=== PATIENT | female | born 1935 | race Two or more races ===

== ENCOUNTER 2017-03-16 22:09 | Inpatient (IN) | payer MEDICAID, MEDICARE ==
[2017-03-16] MEDS ORDERED: NS 0.9% 1000 ML* 1,000 ML IV ONE (22:21)
[2017-03-16] MEDS ORDERED: Acetaminophen TAB* 325 MG PO ONE (22:21)
[2017-03-16 22:47] LABS: Hematocrit 38 % (35-47); Hemoglobin 12.1 g/dl (12.0-16.0); Mean Corpuscular HGB Conc 32 g/dl (31-36); Mean Corpuscular Hemoglobin 28 pg (27-31); Mean Corpuscular Volume 86 fL (80-97); Mean Platelet Volume 9 um3 (7.4-10.4); Red Blood Count 4.39 10^6/ul (4.0-5.4); Red Cell Distribution Width 17 % (10.5-15); White Blood Count 16.2 10^3/ul (3.5-10.8)
[2017-03-16 23:02] LABS: Albumin 3.7 g/dL (3.2-5.2); BUN/Creatinine Ratio 26.2 (8-20); Calcium 8.9 mg/dL (8.6-10.3); EGFR African American 121.7 (>60); EGFR Non-African American 94.6 (>60); Globulin 2.5 g/dL (2-4); Potassium 3.1 mmol/L (3.5-5.0); Total Bilirubin 0.3 mg/dL (0.2-1.0); Total Protein 6.2 g/dL (6.4-8.9)
[2017-03-16 23:04] LABS: Troponin I 0.02 ng/mL (<0.04)
--- NOTE | 2017-03-16 23:04 | RAD ---
INDICATION: Headache and inability to get up off of the floor independently COMPARISON: Similar CT of the brain dated June 18, 2014 TECHNIQUE: Contiguous axial sections of the brain were obtained from the skull base to the vertex without contrast. FINDINGS: The ventricles, cisterns and sulci exhibit mild symmetrical involutional changes similar to the previous CT of the brain. At the right temporal lobe (image 15 of 32) there is a 2.2 cm focus of hyperattenuating parenchyma similar in appearance to the previous CT of the brain. There is very mild periventricular and subcortical white matter hypoattenuation most consistent with chronic microvascular disease. Otherwise the del castillo-white matter differentiation is adequately maintained and there is no sulcal effacement. No significant focal abnormality or mass effect is present. There is no evidence for intracranial hemorrhage. No significant focal osseous abnormality is present. The visualized portion of the paranasal sinuses and mastoid air cells appear clear. 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 There is no CT evidence of acute intracranial abnormality.
[2017-03-16] MEDS ORDERED: cefTRIAXone VIAL(*) 1,000 MG in NS 0.9% 50 ML* 50 ML IVPB ONE (23:06)
--- NOTE | 2017-03-16 23:06 | RAD ---
INDICATION: Fever COMPARISON: Similar chest x-ray dated March 30, 2014 TECHNIQUE: Single AP view of the chest was obtained. FINDINGS: There is mild cardiomegaly relative to the previous chest x-ray. The heart and mediastinum otherwise exhibit normal contour and morphology. There is hazy density overlying the central lungs bilaterally and exhibit securing the left lung base and left hemidiaphragm. The pulmonary vasculature appears engorged and indistinct. Visualized bones are normal for the patient's age. IMPRESSION: IN THE CORRECT CLINICAL SETTING FINDINGS THIS CHEST X-RAY COULD BE COMPATIBLE WITH CARDIOGENIC PULMONARY EDEMA.
[2017-03-16] MEDS ORDERED: Potassium Chlor TAB* 20 MEQ TAB.ER PO ONE (23:12)
--- NOTE | 2017-03-16 23:14 | ED ---
Wade Rodriguez Aidan, scribed for Dorothy Randolph MD on 03/16/17 at 2309 . Complex/Multi-Sys Presentation - HPI Summary HPI Summary: 81 y/o female presents to the ED via EMS with a complaint of an acute, moderate episode of weakness and suspected hyperthermia that caused the patient to fall earlier today. After she fell, she remained on the ground for several hours. There was no associated head trauma or LOC. Associated symptoms include a fever of 103 earlier today, dizziness during the onset of her fall, and an inability to urinate, despite needing to go. She mentions feeling unwell for several days now. Pt denies any dysuria, abdominal pain, or use of blood thinners. She was given a liter of fluids en route. She weighs roughly 64Kg. - History Of Current Complaint Chief Complaint: EDGeneral Time Seen by Provider: 03/16/17 22:11 Hx Obtained From: Patient Onset/Duration: Sudden Onset, Lasting Hours, Still Present - Pt still feels weak , however, she no longer has any other associated symptoms Timing: Intermittent, Lasting:, Hours - Pt remained on the floor after the fall for several hours Severity Currently: Moderate Severity Initially: Moderate - currently, moderate weakness Location: Negative - no pain mentioned Aggravating Factor(s): unknown, however, her room was very hot when EMS arrived which may have caused her fall Alleviating Factor(s): unknown Associated Signs And Symptoms: Positive: Dizziness - during onset of fall, Weakness - constant, still present, Fever - of 103 according to EMS, Other - inability to urinate - Allergies/Home Medications Allergies/Adverse Reactions: Allergies Allergy/AdvReac Type Severity Reaction Status Date / Time Beta Adrenergic Blockers AdvReac Coughing Verified 08/05/16 10:57 ENVIRONMENTAL/SEASONAL Allergy Unknown Uncoded 12/29/13 10:09 HAYFEVER Reaction Details PMH/Surg Hx/FS Hx/Imm Hx Cardiovascular History: Reports: Hx Hypertension - control with meds Denies: Hx Pacemaker/ICD GI History: Reports: Hx Gastroesophageal Reflux Disease - CONTROL WITH MEDICATION History: Reports: Hx Kidney Stones - long time ago - passed Musculoskeletal History: Reports: Hx Arthritis - RHEUMATOID ARTHRITIS, Other Musculoskeletal History - right wrist carpal tunnel syndrome Denies: Hx Osteoporosis Sensory History: Reports: Hx Contacts or Glasses - glasses Denies: Hx Hearing Aid Opthamlomology History: Reports: Hx Contacts or Glasses - glasses Psychiatric History: Reports: Hx Anxiety - HX OF, Hx Depression - HX OF Denies: Hx Panic Disorder - Cancer History Cancer Type, 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 Hx Chemotherapy: No Hx Radiation Therapy: No - Surgical History Surgery Procedure, Year, and Place: BILATERAL CATARACT EXTRACTION WITH IOL IMPLANT,APPENDECTOMY,DEVIATED SEPTUM REPAIR,BX BOTH TEMPLES Hx Anesthesia Reactions: No Infectious Disease History: No Infectious Disease History: Denies: Traveled Outside the [place] in Last 30 Days - Family History Known Family History: Negative: Hypertension, Diabetes - Social History Occupation: Retired Lives: With Family Alcohol Use: None Substance Use Type: Reports: None Smoking Status (MU): Never Smoked Tobacco Review of Systems Positive: Fever - 103. Negative: Chills, Fatigue, Skin Diaphoresis Eyes: Negative ENT: Negative Cardiovascular: Negative Respiratory: Negative Gastrointestinal: Negative Positive: see HPI, other - inability to urinate. Negative: no symptoms reported , burning, dysuria, discharge, frequency, flank pain, hematuria, incontinence, pain, urgency Musculoskeletal: Negative Skin: Negative Neurological: Other - Pt fell as the result of her weakness and possible hyperthermia, no reported LOC, dizziness Positive: Weakness. Negative: Headache, Paresthesia, Numbness, Syncope, Slurred Speech Psychological: Normal All Other Systems Reviewed And Are Negative: Yes Physical Exam - Summary Physical Exam Summary: General: Well appearing, no pain distress; POSITIVE: Patient is very warm to touch Skin: Warm, Skin Color Reflects Adequate Perfusion, Dry Eyes: EOMI, ALEXANDRE ENT: Pharynx normal, TMs normal Neck: Supple, nontender Respiratory: CTA, breath sounds present, no rhonchi, no wheezes, no rales Cardiovascular: RRR, no murmur, no rub, no gallop Abdomen: Soft, nontender, Non-distended, no guarding, no rebound Bowel: Present Musculoskeletal: YUDITH, No edema Neuro: Sensory/motor intact, A&Ox3, CN intact 2-12 Psych: Affect/mood appropriate Triage Information Reviewed: Yes Vital Signs On Initial Exam: Initial Vitals Temp Pulse Resp BP Pulse Ox 99.3 F 110 20 133/53 92 03/16/17 22:22 03/16/17 22:22 03/16/17 22:22 03/16/17 22:22 03/16/17 22:22 Vital Signs Reviewed: Yes Diagnostics - Vital Signs Vital Signs Temp Pulse Resp BP Pulse Ox 03/16/17 22:22 99.3 F 110 20 133/53 92 - Laboratory Lab Results: Lab Results 03/16/17 03/16/17 Range/Units 22:40 22:40 WBC 16.2 H (3.5-10.8) 10^3/ul RBC 4.39 (4.0-5.4) 10^6/ul Hgb 12.1 (12.0-16.0) g/dl Hct 38 (35-47) % MCV 86 (80-97) fL MCH 28 (27-31) pg MCHC 32 (31-36) g/dl RDW 17 H (10.5-15) % Plt Count 166 (150-450) 10^3/ul MPV 9 (7.4-10.4) um3 Neut % (Auto) 86.6 H (38-83) % Lymph % (Auto) 8.2 L (25-47) % Dixie % (Auto) 4.2 (1-9) % Eos % (Auto) 0.5 (0-6) % Baso % (Auto) 0.5 (0-2) % Absolute Neuts (auto) 14.0 H (1.5-7.7) 10^3/ul Absolute Lymphs (auto) 1.3 (1.0-4.8) 10^3/ul Absolute Monos (auto) 0.7 (0-0.8) 10^3/ul Absolute Eos (auto) 0.1 (0-0.6) 10^3/ul Absolute Basos (auto) 0.1 (0-0.2) 10^3/ul Absolute Nucleated RBC 0.01 10^3/ul Nucleated RBC % 0 INR (Anticoag Therapy) 1.10 (0.89-1.11) APTT 31.4 (26.0-36.3) seconds Result Diagrams: 03/16/17 22:40 03/16/17 22:40 Lab Statement: Any lab studies that have been ordered have been reviewed, and results considered in the medical decision making process. Complex Multi-Symp Course/Dx Course Of Treatment: 81 yo female with a fall s/p not feeling well today she was on the floor for several hours. She is suspected to have a uti, her lactic is 3, and her wbc is 16, she received 1Liter ns in the ambulance was given the rest of her 30cc/kg wide open on arrival. She is being covered for sepsis with ceftriaxone and the case has been discussed with Dr. Morales for admission. CXR is read as possible chf but pt does not appear to be in failure. cpk is slightly elevated but no signs of rhabdomyolysis at this time - Diagnoses Provider Diagnoses: Sepsis - Physician Notifications Discussed Care Of Patient With: Nereida Morales Time Discussed With Above Provider: 23:15 Instructed by Provider To: Admit As Inpatient - Critical Care Time Critical Care Time: 30-74 min Discharge - Discharge Plan Condition: Guarded Disposition: ADMITTED TO [facility] The documentation as recorded by the Wade oleary Aidan accurately reflects the service I personally performed and the decisions made by me, Dorothy Randolph MD.
[2017-03-16 23:35] LABS: Magnesium 1.9 mg/dL (1.9-2.7)
[2017-03-17 00:10] LABS: Urine Bacteria 1+ (Absent); Urine Bilirubin Negative (Negative); Urine Glucose 2+(150 mg/dL) (Negative); Urine Nitrite Positive (Negative)
[2017-03-17] MEDS ORDERED: Al Hydrox/Mg Hydrox/Simet LIQ* 30 ML UDC PO PRN (00:39)
[2017-03-17] MEDS ORDERED: Docusate CAP* 100 MG PO PRN (00:39)
[2017-03-17] MEDS ORDERED: Senna TAB PO PRN (00:39)
[2017-03-17] MEDS ORDERED: Ondansetron INJ* 2 MG/ML VIAL IV PRN (00:39)
[2017-03-17] MEDS ORDERED: Acetaminophen TAB* 325 MG PO PRN (00:39)
[2017-03-17] MEDS ORDERED: oxyCODONE/Acetamin 5/325 MG* TAB PO PRN (00:42)
[2017-03-17] MEDS ORDERED: NS 0.9% 1000 ML* 1,000 ML IV SCH (00:45)
--- NOTE | 2017-03-17 02:58 | HP ---
CC: Ashley Reyes MD HISTORY AND PHYSICAL: DATE OF ADMISSION: 03/17/17 TIME OF EVALUATION: 010 PRIMARY CARE PHYSICIAN: Ashley Reyes MD CHIEF COMPLAINT: Fall, weakness. HISTORY OF PRESENT ILLNESS: This is a 81-year-old female with a past medical history of rheumatoid arthritis and hypertension who presents to the emergency room after falling and feeling unwell today. The patient lives at [facility] alone and she was feeling warm and sweating earlier today and having difficulty urinating. She fell on to the floor and called her daughter who came over, was unable to get her up and had to call the EMS at that time. The patient states that she has frontal headache, neck pain, which is chronic. She has fibromyalgia and she has been dizzy. She was having issues with urinating earlier, is no longer the case anymore. No dysuria. No abdominal pain. No nausea, vomiting, or diarrhea. She has been complaining of some chest heaviness and palpitations. Otherwise, review of systems is negative. In the emergency room, the patient had labs, imaging. She was given a liter of normal saline, ceftriaxone 1 g, and 40 mEq of potassium, was referred to the hospitalist service for further evaluation. PAST MEDICAL HISTORY: 1. Fibromyalgia. 2. Hypertension. 3. History of carpal tunnel release. 4. GERD. 5. Rheumatoid arthritis. 6. Anxiety and depression. MEDICATIONS: The daughter brought her medications, unfortunately they are all pill boxes, we will need to confirm what her medications are and reorder them accordingly in the morning. ALLERGIES: BETA ADRENERGIC BLOCKERS, ENVIRONMENTAL, SEASONAL ALLERGIES. FAMILY HISTORY: Her mother at age 94 from old age and her father at age 74 from cardiac causes. SOCIAL HISTORY: As mentioned, the patient lives alone in [facility]. She ambulates independently, mostly occasionally with a walker. Her daughter, Azul Barahona, is her healthcare proxy. No history of tobacco, alcohol, or illicit drug use. Code status was full code. REVIEW OF SYSTEMS: As mentioned in the HPI. PHYSICAL EXAMINATION GENERAL: In no acute distress. Resting comfortably with her daughter at the bedside. VITAL SIGNS: Temp 99.3, pulse rate 103, respiratory rate 24, oxygen saturation 96% on 2 L, blood pressure 133/53. HEENT: Head normocephalic. Pupils are equal, reactive, and anicteric. Oropharynx: Mucous membranes are moist. NECK: Supple. No lymphadenopathy. She does have pain with flexion; however, this was chronic. RESPIRATORY: Diminished breath sounds. No wheezes, rhonchi, or rales. CARDIAC: Tachycardic, harsh systolic murmur heard most prominent at the right sternal base radiating to the carotids. ABDOMEN: Soft, nontender, nondistended. No tenderness. EXTREMITIES: No clubbing, cyanosis, or edema. +1 DPs. NEUROLOGIC: Alert, awake, and oriented x3. No focal neurologic deficits. LABORATORY DATA: White count 16.2, hemoglobin 12.1, hematocrit 38, platelets 166, INR 1.10. Sodium 137, potassium 3.1, chloride 105, bicarb 24, BUN 16, creatinine 0.61, glucose 255, lactic acid 3. Total CK is 345. Troponin is 0.02. Urinalysis, clean catch, nitrites positive, leukocytes +3, whites +3, present squamous cells, +2 glucose. RADIOGRAPHIC DATA: Head CT: Chronic findings as described above includes stable encephalomalacia at the right temporal lobe, mild microvascular disease, and mild age-appropriate involutional changes. There is no CT evidence of acute intracranial abnormality. Chest x-ray shows in regards to clinical setting, findings of chest x-ray could be combined with cardiogenic pulmonary edema. EKG shows sinus tachycardia at a rate of 109. ASSESSMENT: This is a 81-year-old female with a past medical history of rheumatoid arthritis who presents to the emergency room having fallen and not feeling well. 1. Fall. Assessment: I suspect her fall was secondary to her sepsis most likely secondary to a urinary traction infection in the setting of urinary tract infection and fever with white count. She does have some neck tenderness; however, this appears to be old and we have another clear source for infection at this time. She had a urinary tract infection in the past and was sensitive to ceftriaxone. Plan: We will admit her with IV fluids and continue on ceftriaxone. Follow up with the urine cultures. 2. Chest heaviness. Assessment: The patient complaining of intermittent chest heaviness. Her EKG and troponin are remarkable initially. Plan: We will admit her to the telemetry, repeat her troponin. CHRONIC MEDICAL PROBLEMS: 1. Need to call pharmacy at [facility] to get her medication list as she is in fact immunosuppressed for her rheumatoid arthritis, may consider broader spectrum antibiotic use if not clinically improving. 2. FEN. I will place the patient on a regular diet with IV fluids. 3. DVT prophylaxis, the patient scores high risk, placed on heparin subcu t.i.d. 4. Code status, full code. PATIENT TIME: Greater than 55 minutes spent doing the history and physical, more than half the time spent in direct patient contact. [id number]/CPS #: [id number] JACQUELINE
[2017-03-17] MEDS: Heparin VIAL(*) 5000 UNITS/ML VIAL (FIVE THOUSAND) SUBCUT SCH ×3 (05:32→21:43)
[2017-03-17 06:40] LABS: Hematocrit 36 % (35-47); Mean Corpuscular HGB Conc 33 g/dl (31-36); Mean Corpuscular Hemoglobin 29 pg (27-31); Mean Corpuscular Volume 86 fL (80-97); Mean Platelet Volume 10 um3 (7.4-10.4); Red Blood Count 4.21 10^6/ul (4.0-5.4); Red Cell Distribution Width 17 % (10.5-15); White Blood Count 10.7 10^3/ul (3.5-10.8)
[2017-03-17 06:52] LABS: BUN/Creatinine Ratio 21.7 (8-20); Calcium 8.4 mg/dL (8.6-10.3); EGFR African American 168.5 (>60); Potassium 3.3 mmol/L (3.5-5.0)
[2017-03-17 06:54] LABS: Troponin I 0.03 ng/mL (<0.04)
[2017-03-17] MEDS ORDERED: Potassium Chlor TAB* 20 MEQ TAB.ER PO ONE (08:22)
[2017-03-17] MEDS: cefTRIAXone VIAL(*) 1,000 MG in NS 0.9% 50 ML* 50 ML IVPB SCH (08:56)
--- NOTE | 2017-03-17 09:14 | PN ---
Subjective Date of Service: 03/17/17 Interval History: Patient seen and examined at bedside with assistance of Argentine log handler via iPad (name: Micheline) She is in no acute distress, however, she is very tired and does nod yes when asked if tired. Patient does not provide much in way of complaint or conversation at this time but does follow commands with repeated prompting. Responds yes or no in both Urdu and Argentine - unable to have full conversation, as patient keeps falling asleep. Telemetry: SR with PVCs 80s Family History: Unchanged from Admission Social History: Unchanged from Admission Past Medical History: Unchanged from Admission Objective Active Medications: Acetaminophen (Tylenol Tab*) 650 mg PO Q4H PRN PRN Reason: FEVER/PAIN Al Hydrox/Mg Hydrox/Simethicone (Maalox Plus*) 30 ml PO Q6H PRN PRN Reason: INDIGESTION Docusate Sodium (Colace Cap*) 100 mg PO BID PRN PRN Reason: CONSTIPATION Heparin Sodium (Porcine) (Heparin Vial(*)) 5,000 units SUBCUT Q8HR [facility] Last Admin: 03/17/17 05:32 Dose: 5,000 units Ceftriaxone Sodium 1,000 mg/ (Sodium Chloride) 50 mls @ 200 mls/hr IVPB Q24H [facility] Last Admin: 03/17/17 08:56 Dose: 200 mls/hr Ondansetron HCl (Zofran Inj*) 4 mg IV Q4H PRN PRN Reason: NAUSEA/VOMITING Oxycodone/Acetaminophen (Percocet 5/325 Tab*) 1 tab PO Q4H PRN PRN Reason: PAIN Senna (Senokot Tab*) 1 tab PO BID PRN PRN Reason: CONSTIPATION Vital Signs 03/17/17 03/17/17 03/17/17 01:00 01:02 01:13 Temperature Pulse Rate 88 90 Respiratory 23 20 20 Rate Blood Pressure 108/48 (mmHg) O2 Sat by Pulse 93 93 Oximetry 03/17/17 03/17/17 03/17/17 02:27 04:18 07:48 Temperature 98.7 F 99.4 F 98.5 F Pulse Rate 87 90 93 Respiratory 20 16 16 Rate Blood Pressure 113/41 132/57 119/54 (mmHg) O2 Sat by Pulse 94 92 93 Oximetry Oxygen Devices in Use Now: None Appearance: Elderly female, lying in bed, NAD, very sleepy Eyes: PERRLA Ears/Nose/Mouth/Throat: Mucous Membranes Moist Neck: NL Appearance and Movements; NL JVP Respiratory: Symmetrical Chest Expansion and Respiratory Effort, Clear to Auscultation - diminished Cardiovascular: RRR - systolic murmur 2-3/6 Abdominal: NL Sounds; No Tenderness; No Distention Extremities: No Edema Neurological: - - difficult to determine orientation while pt is sleepy, JAMES, departmental shipping clerk equal bilaterally, follows commands Lines/Tubes/Other Access: Clean, Dry and Intact Peripheral IV Result Diagrams: 03/17/17 05:50 03/17/17 05:32 Additional Lab and Data: Lab Results 03/16/17 03/16/17 Range/Units 22:40 22:40 WBC 16.2 H (3.5-10.8) 10^3/ul RBC 4.39 (4.0-5.4) 10^6/ul Hgb 12.1 (12.0-16.0) g/dl Hct 38 (35-47) % MCV 86 (80-97) fL MCH 28 (27-31) pg MCHC 32 (31-36) g/dl RDW 17 H (10.5-15) % Plt Count 166 (150-450) 10^3/ul MPV 9 (7.4-10.4) um3 Neut % (Auto) 86.6 H (38-83) % Lymph % (Auto) 8.2 L (25-47) % Pope % (Auto) 4.2 (1-9) % Eos % (Auto) 0.5 (0-6) % Baso % (Auto) 0.5 (0-2) % Absolute Neuts (auto) 14.0 H (1.5-7.7) 10^3/ul Absolute Lymphs (auto) 1.3 (1.0-4.8) 10^3/ul Absolute Monos (auto) 0.7 (0-0.8) 10^3/ul Absolute Eos (auto) 0.1 (0-0.6) 10^3/ul Absolute Basos (auto) 0.1 (0-0.2) 10^3/ul Absolute Nucleated RBC 0.01 10^3/ul Nucleated RBC % 0 INR (Anticoag Therapy) 1.10 (0.89-1.11) APTT 31.4 (26.0-36.3) seconds Assess/Plan/Problems-Billing Assessment: Ms. Barahona is a 81 yo female with a PMH of fibromyalgia, HTN, GERD, RA, carpal tunnel sx, anxiety, and depression who presented to the ED on 03/16 with concern for fall and weakness; pt found to have UTI upon evaluation. - Patient Problems (1) Sepsis Comment: Suspect urinary source Patient meets SIRS criteria with elevated WBC, lactic acid, tachypnea, and tachycardia. Patient meets SOFA criteria with qSOFA score of 1 for tachypnea. Blood and urine cx pending. Continue IVF and ceftriaxone. (2) UTI (urinary tract infection) Comment: UA positive for nitrates, leukocyte esterase, bacteria Continue ceftriaxone Await urine cx (3) Fall Comment: Patient previously independent with ADLs and resides at [facility]. Suspect secondary to acute infection and sepsis. PT/OT eval (4) Chest heaviness Code(s): R07.89 - OTHER CHEST PAIN Comment: Denies at this time Trop negative, no ischemic changes to EKG Telemetry shows SR with PVCs Suspect secondary to sepsis and tachycardia Continue to monitor (5) HTN (hypertension) Code(s): I10 - ESSENTIAL (PRIMARY) HYPERTENSION Comment: Normotensive Continue amlodipine, losartan. Hold HCTZ. (6) GERD (gastroesophageal reflux disease) Code(s): K21.9 - GASTRO-ESOPHAGEAL REFLUX DISEASE WITHOUT ESOPHAGITIS Comment : Continue home omeprazole. (7) Rheumatoid arthritis Code(s): M06.9 - RHEUMATOID ARTHRITIS, UNSPECIFIED Comment: Resume methotrexate upon discharge. (8) Anxiety and depression Code(s): F41.9 - ANXIETY DISORDER, UNSPECIFIED; F32.9 - MAJOR DEPRESSIVE DISORDER, SINGLE EPISODE, UNSPECIFIED Comment: Continue amitryptiline. (9) DVT prophylaxis Comment: SQ heparin Status and Disposition: Inpatient admission. Anticipate dc in 2-3 days.
[2017-03-17] MEDS: Pregabalin CAP(*) 50 MG PO SCH (19:32)
[2017-03-17] MEDS: Dorzolamide/Timolol OPTH (NF) 10 ML BOT BOTH EYES SCH (19:35)
[2017-03-17] MEDS ORDERED: Amitriptyline TAB* 25 MG PO SCH (21:00)
[2017-03-18] MEDS: Heparin VIAL(*) 5000 UNITS/ML VIAL (FIVE THOUSAND) SUBCUT SCH ×2 (04:55→14:36)
[2017-03-18] MEDS ORDERED: Folic Acid TAB* 1 MG PO SCH (09:00)
[2017-03-18] MEDS ORDERED: Omeprazole CAP* 20 MG PO SCH (09:00)
[2017-03-18] MEDS ORDERED: Losartan TAB* 25 MG PO SCH (09:00)
[2017-03-18] MEDS ORDERED: CMC:Pravastatin (NF) 20 MG TAB PO SCH (09:00)
[2017-03-18] MEDS ORDERED: amLODIPine TAB* 5 MG PO SCH (09:00)
[2017-03-18] MEDS: cefTRIAXone VIAL(*) 1,000 MG in NS 0.9% 50 ML* 50 ML IVPB SCH (09:13)
[2017-03-18] MEDS: Dorzolamide/Timolol OPTH (NF) 10 ML BOT BOTH EYES SCH (09:16)
[2017-03-18] MEDS: Pregabalin CAP(*) 50 MG PO SCH ×2 (09:57→14:35)
--- NOTE | 2017-03-18 10:01 | PN ---
Subjective Date of Service: 03/18/17 Interval History: Patient seen and examined at bedside. She is more alert today and denies any acute concerns, including fever/chills, CP, SOB, abd pain, n/v, dizziness. She still feels fatigued but states that it helps her to rest frequently. She reports that she has help at home. Family History: Unchanged from Admission Social History: Unchanged from Admission Past Medical History: Unchanged from Admission Objective Active Medications: Acetaminophen (Tylenol Tab*) 650 mg PO Q4H PRN PRN Reason: FEVER/PAIN Last Admin: 03/17/17 19:33 Dose: 650 mg Al Hydrox/Mg Hydrox/Simethicone (Maalox Plus*) 30 ml PO Q6H PRN PRN Reason: INDIGESTION Amitriptyline HCl (Elavil Tab*) 25 mg PO BEDTIME [facility] Last Admin: 03/17/17 19:33 Dose: 25 mg Amlodipine Besylate (Norvasc Tab*) 5 mg PO DAILY [facility] Last Admin: 03/18/17 09:04 Dose: 5 mg Docusate Sodium (Colace Cap*) 100 mg PO BID PRN PRN Reason: CONSTIPATION Dorzolamide/Timolol (Cosopt (Nf)) 1 drop BOTH EYES BID [facility] PRN Reason: Protocol Last Admin: 03/18/17 09:16 Dose: Not Given Folic Acid (Folvite Tab*) 1 mg PO DAILY [facility] Last Admin: 03/18/17 09:05 Dose: 1 mg Heparin Sodium (Porcine) (Heparin Vial(*)) 5,000 units SUBCUT Q8HR [facility] Last Admin: 03/18/17 04:55 Dose: 5,000 units Ceftriaxone Sodium 1,000 mg/ (Sodium Chloride) 50 mls @ 200 mls/hr IVPB Q24H [facility] Last Admin: 03/18/17 09:13 Dose: 200 mls/hr Losartan Potassium (Cozaar Tab*) 100 mg PO DAILY [facility] Last Admin: 03/18/17 09:55 Dose: 100 mg Omeprazole (Prilosec Cap*) 40 mg PO DAILY [facility] Last Admin: 03/18/17 09:03 Dose: 40 mg Ondansetron HCl (Zofran Inj*) 4 mg IV Q4H PRN PRN Reason: NAUSEA/VOMITING Oxycodone/Acetaminophen (Percocet 5/325 Tab*) 1 tab PO Q4H PRN PRN Reason: PAIN Pravastatin Sodium (Pravachol (Nf)) 20 mg PO DAILY [facility] PRN Reason: Protocol Last Admin: 03/18/17 09:56 Dose: 20 mg Pregabalin (Lyrica Cap(*)) 150 mg PO TID [facility] Last Admin: 03/18/17 09:57 Dose: 150 mg Senna (Senokot Tab*) 1 tab PO BID PRN PRN Reason: CONSTIPATION Vital Signs 03/17/17 03/17/17 03/17/17 11:45 15:33 18:34 Temperature 98.6 F 98.3 F Pulse Rate 87 85 Respiratory 16 24 18 Rate Blood Pressure 121/53 108/49 (mmHg) O2 Sat by Pulse 97 92 98 Oximetry 03/17/17 03/17/17 03/17/17 19:32 19:35 19:53 Temperature 98.4 F 98.4 F Pulse Rate 91 83 Respiratory 14 18 22 Rate Blood Pressure 105/49 94/48 (mmHg) O2 Sat by Pulse 96 95 Oximetry 03/17/17 03/17/17 03/18/17 21:32 23:52 04:03 Temperature 99.0 F 97.8 F Pulse Rate 84 87 Respiratory 18 16 16 Rate Blood Pressure 122/57 115/66 (mmHg) O2 Sat by Pulse 95 93 Oximetry 03/18/17 03/18/17 07:54 09:57 Temperature 97.6 F Pulse Rate 83 Respiratory 22 18 Rate Blood Pressure 133/59 (mmHg) O2 Sat by Pulse 94 Oximetry Oxygen Devices in Use Now: None Appearance: Older female, OOB to chair, NAD Eyes: PERRLA Ears/Nose/Mouth/Throat: Mucous Membranes Moist Neck: NL Appearance and Movements; NL JVP Respiratory: Symmetrical Chest Expansion and Respiratory Effort, Clear to Auscultation Cardiovascular: NL Sounds; No Murmurs; No JVD, RRR Abdominal: NL Sounds; No Tenderness; No Distention Extremities: No Edema Neurological: Alert and Oriented x 3, NL Muscle Strength and Tone Lines/Tubes/Other Access: Clean, Dry and Intact Peripheral IV Nutrition: Taking PO's Result Diagrams: 03/17/17 05:50 03/17/17 05:32 Additional Lab and Data: Lab Results 03/16/17 03/16/17 Range/Units 22:40 22:40 WBC 16.2 H (3.5-10.8) 10^3/ul RBC 4.39 (4.0-5.4) 10^6/ul Hgb 12.1 (12.0-16.0) g/dl Hct 38 (35-47) % MCV 86 (80-97) fL MCH 28 (27-31) pg MCHC 32 (31-36) g/dl RDW 17 H (10.5-15) % Plt Count 166 (150-450) 10^3/ul MPV 9 (7.4-10.4) um3 Neut % (Auto) 86.6 H (38-83) % Lymph % (Auto) 8.2 L (25-47) % [place] % (Auto) 4.2 (1-9) % Eos % (Auto) 0.5 (0-6) % Baso % (Auto) 0.5 (0-2) % Absolute Neuts (auto) 14.0 H (1.5-7.7) 10^3/ul Absolute Lymphs (auto) 1.3 (1.0-4.8) 10^3/ul Absolute Monos (auto) 0.7 (0-0.8) 10^3/ul Absolute Eos (auto) 0.1 (0-0.6) 10^3/ul Absolute Basos (auto) 0.1 (0-0.2) 10^3/ul Absolute Nucleated RBC 0.01 10^3/ul Nucleated RBC % 0 INR (Anticoag Therapy) 1.10 (0.89-1.11) APTT 31.4 (26.0-36.3) seconds Assess/Plan/Problems-Billing Assessment: Ms. Barahona is a 81 yo female with a PMH of fibromyalgia, HTN, GERD, RA, carpal tunnel sx, anxiety, and depression who presented to the ED on 03/16 with concern for fall and weakness; pt found to have UTI upon evaluation. - Patient Problems (1) Sepsis Comment: Suspect urinary source, urine cx growing E. coli No blood cx growth thus far Patient meets SIRS criteria with elevated WBC, lactic acid, tachypnea, and tachycardia. Patient meets SOFA criteria with qSOFA score of 1 for tachypnea. Continue IVF and ceftriaxone. (2) UTI (urinary tract infection) Comment: UA positive for nitrates, leukocyte esterase, bacteria Continue ceftriaxone Urine cx growing E. coli (3) Fall Comment: Patient previously independent with ADLs and resides at [facility]. Suspect secondary to acute infection and sepsis. PT/OT eval - no acute PT needs identified, OT recommendations for further OT eval and tx at home. (4) Chest heaviness Code(s): R07.89 - OTHER CHEST PAIN Comment: Continues to deny Trop negative, no ischemic changes to EKG Telemetry shows SR Suspect secondary to sepsis and tachycardia Continue to monitor (5) HTN (hypertension) Code(s): I10 - ESSENTIAL (PRIMARY) HYPERTENSION Comment: Normotensive Continue amlodipine, losartan. Hold HCTZ. (6) GERD (gastroesophageal reflux disease) Code(s): K21.9 - GASTRO-ESOPHAGEAL REFLUX DISEASE WITHOUT ESOPHAGITIS Comment : Continue home omeprazole. (7) Rheumatoid arthritis Code(s): M06.9 - RHEUMATOID ARTHRITIS, UNSPECIFIED Comment: Resume methotrexate upon discharge. (8) Anxiety and depression Code(s): F41.9 - ANXIETY DISORDER, UNSPECIFIED; F32.9 - MAJOR DEPRESSIVE DISORDER, SINGLE EPISODE, UNSPECIFIED Comment: Continue amitryptiline. (9) DVT prophylaxis Comment: SQ heparin Status and Disposition: Inpatient admission.
[2017-03-18] MEDS ORDERED: CMC: Dorzolamide/Timolol OPTH (NF) 10 ML BOT BOTH EYES SCH (11:30)
[2017-03-18 11:42] VITALS: BP 123/55
--- NOTE | 2017-03-19 07:15 | DS ---
DISCHARGE SUMMARY: DATE OF ADMISSION: 03/17/17 DATE OF DISCHARGE: 03/18/17 PROVIDER: Andre Moss NP ATTENDING PHYSICIAN: Dr. Susie Ventura * (dictated by Andre Moss NP) PRIMARY CARE PHYSICIAN: Ashley Reyes MD PRIMARY DISCHARGE DIAGNOSES: 1. Urinary tract infection. 2. Fall. 3. Atypical chest pain. SECONDARY DISCHARGE DIAGNOSES: 1. Fibromyalgia. 2. Hypertension. 3. History of carpal tunnel release. 4. Gastroesophageal reflux disease. 5. Rheumatoid arthritis. 6. Anxiety. 7. Depression. MEDICATIONS AT DISCHARGE: 1. Cefuroxime 250 mg b.i.d. x5 additional days. This is the new medication. 2. Cosopt eye drops 1 drop to both eyes b.i.d. 3. Zolpidem 10 mg at bedtime p.r.n. 4. Hydrochlorothiazide 25 mg daily. 5. Folic acid 1 mg daily. 6. Amitriptyline 25 mg at bedtime. 7. Pravastatin 20 mg daily. 8. Omeprazole 40 mg daily. 9. Pregabalin 150 mg t.i.d. 10. Methotrexate 2.5 mg weekly. The patient is advised to talk to Dr. Reyes before resuming. 11. Losartan potassium 100 mg daily. 12. Amlodipine 5 mg daily. HOSPITAL COURSE OF STAY: For full details, please refer to the H and P provided by Dr. Morales on 03/17/17. In summary, Ms. Barahona is a 81-year-old female who presented to the ER after falling and feeling weak and unwell. The patient lives at [facility] and states that she was feeling warm and sweaty earlier that day and had difficulty urinating. In the ER, the patient had labs and imaging and received IV normal saline, ceftriaxone, and potassium repletion. It was suspected that the patient had a urinary tract infection. She did have a fever as well as an elevated white blood cell count. Her UA was positive for nitrites and leukocyte esterase. She was started on ceftriaxone and continued on IV fluids. Her urine culture did grow E. coli. In regards to chest heaviness, the patient denied any further complaint of this and it was felt that it may have been secondary to tachycardia, palpitations. We did check an EKG, which did not show any ischemic changes. She has been in sinus rhythm, on telemetry with no ectopy or arrhythmias noted. Additionally, her troponins were trended, were found to be negative, again she did not have any further complaints of this once she received fluids and antibiotics. In regards to patient's fall, she was seen in consultation by PT/OT. She is able to demonstrate safe ambulation with her rolling walker, which she will continue to use at home. Occupational therapy did note that she would benefit from further assistance and therapies in order to better maximize her independence with ADLs such as dressing and putting on her shoes. There is no any acute rehab needs, but did feel that she would benefit from home physical therapy and occupational therapy which has been ordered via visiting nurse services. GAF at the time of discharge, the patient is in stable condition. She is without complaints, is eager to go home. She demonstrates safe ambulation without complaints of chest pain, dyspnea, abdominal pain, nausea, vomiting. She has been afebrile. Her white blood cell count has normalized. CONCERNS AT DISCHARGE: The patient will be discharged to home on 03/18/17. She is to follow up with Dr. Reyes within 1 week. OUTPATIENT FOLLOWUP NEEDS: The patient was advised to stop the methotrexate and follow up with Dr. Reyes in resuming the medication. Additionally, she is to continue cefuroxime for additional 5 days in order to treat her UTI for a course of 7 days. She will need followup urine culture. DIET: Heart healthy diet. ACTIVITY: As tolerated. CONDITION: Stable. DISPOSITION: To home with visiting nurse services. TIME SPENT: Time spent on this discharge was approximately 50 minutes. The patient's interactions, discharge teaching, and plan of care review was done with the assistance of Mahesh Parson language interpreter, #[phone]. Again, this is only a brief summary of the patient's hospital course of stay. For full details, please refer to the full medical record. If you have any further questions or need further assistance, please feel free to contact me at . ANDRE MOSS NP [id number]/[facility] #: [id number] JACQUELINE
== END 2017-03-18 18:05 | disposition home health service (06) | DRG 872 ==
LOC: ED 22:09 → MEDTELE 03-17 00:56
PROVIDERS: ADMIT Pediatrics; ATTEND Internal Medicine
DX: A41.9 Sepsis, unspecified organism (principal); N39.0 Urinary tract infection, site not specified; M06.9 Rheumatoid arthritis, unspecified; I10 Essential (primary) hypertension; B96.20 Unspecified Escherichia coli [E. coli] as the cause of diseases classified elsewhere; R07.9 Chest pain, unspecified; M79.7 Fibromyalgia; K21.9 Gastro-esophageal reflux disease without esophagitis; F41.9 Anxiety disorder, unspecified; F32.9 Major depressive disorder, single episode, unspecified; W18.30XA Fall on same level, unspecified, initial encounter; Y92.039 Unspecified place in apartment as the place of occurrence of the external cause; Z88.8 Allergy status to other drugs, medicaments and biological substances; J30.2 Other seasonal allergic rhinitis; Z82.49 Family history of ischemic heart disease and other diseases of the circulatory system
CPT/HCPCS: 36415; 70450; 71010; 80048; 80053; 81003; 81015; 82550; 83605; 83735; 84484; 85025; 85610; 85730; 87040; 87077; 87086; 87186; 93005; A9270-GY; J0696; J1644

== ENCOUNTER 2017-03-25 15:33 | Emergency (ER) | payer MEDICARE ==
[2017-03-25 16:09] LABS: Hematocrit 39 % (35-47); Hemoglobin 12.8 g/dl (12.0-16.0); Mean Corpuscular HGB Conc 33 g/dl (31-36); Mean Corpuscular Hemoglobin 29 pg (27-31); Mean Corpuscular Volume 88 fL (80-97); Mean Platelet Volume 9 um3 (7.4-10.4); Red Blood Count 4.42 10^6/ul (4.0-5.4); Red Cell Distribution Width 17 % (10.5-15); White Blood Count 11.6 10^3/ul (3.5-10.8)
--- NOTE | 2017-03-25 16:10 | RAD ---
HISTORY: Altered mental status COMPARISONS: March 16, 2017 VIEWS:1: Single frontal portable view of the chest at 3:47 PM FINDINGS: LINES AND TUBES: None. CARDIOMEDIASTINAL SILHOUETTE: The cardiomediastinal silhouette is stable. PLEURA: The costophrenic angles are sharp. No pleural abnormalities are noted. LUNG PARENCHYMA: There is prominence of the central pulmonary vasculature ABDOMEN: The upper abdomen is clear. There is no subphrenic gas. BONES AND SOFT TISSUES: No bone or soft tissue abnormalities are noted. IMPRESSION: PULMONARY VASCULAR CONGESTION
[2017-03-25 16:30] LABS: Troponin I 0.01 ng/mL (<0.04)
[2017-03-25 16:34] LABS: Albumin 3.9 g/dL (3.2-5.2); BUN/Creatinine Ratio 26.4 (8-20); Calcium 9.5 mg/dL (8.6-10.3); EGFR African American 143.1 (>60); EGFR Non-African American 111.3 (>60); Globulin 2.8 g/dL (2-4); Potassium 3.5 mmol/L (3.5-5.0); Total Bilirubin 0.4 mg/dL (0.2-1.0); Total Protein 6.7 g/dL (6.4-8.9)
[2017-03-25] MEDS ORDERED: NS 0.9% 1000 ML* 1,000 ML IV ONE (16:52)
--- NOTE | 2017-03-25 17:16 | RAD ---
Indication: Altered mental status. Fall. Comparison: March 16, 2017 Technique: Noncontrast CT vertex of skull through foramen magnum. Report: Moderate prominence of the cerebral sulci and mild prominence of the cerebellar fissures reflecting atrophy. Unremarkable ventricles and basal cisterns. Negative for del castillo matter white matter obscuration, intra or extra-axial hemorrhage, or mass effect. Unremarkable visualized orbital contents. Negative for calvarial or skull base fracture or suspicious focal osseous lesion. Clear visualized paranasal sinuses and mastoid air spaces. Negative for scalp hematoma. Bilateral temporal region scalp surgical clips. IMPRESSION: 1. No acute intracranial process evident. 2. Mild to moderate involutional change.
[2017-03-25 17:28] LABS: Urine Bacteria Absent (Absent); Urine Bilirubin Negative (Negative); Urine Glucose Negative (Negative); Urine Nitrite Negative (Negative)
[2017-03-25] MEDS ORDERED: Meclizine TAB* 12.5 MG PO ONE (17:29)
[2017-03-25] MEDS ORDERED: Pregabalin CAP(*) 50 MG PO ONE (19:28)
--- NOTE | 2017-03-25 20:22 | ED ---
Ger Rodriguez [place], scribed for Gen Gordon MD on 03/25/17 at 1645 . Dizziness - HPI Summary HPI Summary: Patient is a 81 y/o F who presents to the ED with intermittent, but reoccurring dizziness. She states that she was at her PCP today for complaint, but felt dizzy and fell on the way out. She denies LOC, room spinning dizziness, SOB, abd pain, or changes in speech, but reports staggering with ambulation, dragging of bilateral lower extremities, numbness and tingling of upper extremities, occasional mid-sternal pain, and frequency. Pt also denies hip pain , but reports abrasion to left knee. Pt denies taking blood thinners. Hx of diabetic neuropathy. Pt controls DM with diet, but no medication. - History Of Current Complaint Chief Complaint: EDGeneral Stated Complaint: FALL Time Seen by Provider: 03/25/17 16:40 Hx Obtained From: Patient Onset/Duration: Still Present, Gradually Timing: Intermittent Episode Lasting Severity Initially: Moderate Severity Currently: Moderate Character: Dizzy Aggravating Factor(s): Nothing Alleviating Factor(s): Nothing Associated Signs And Symptoms: Negative: SOB, Visual Changes, Slurred Speech - Allergies/Home Medications Allergies/Adverse Reactions: Allergies Allergy/AdvReac Type Severity Reaction Status Date / Time Beta Adrenergic Blockers AdvReac Coughing Verified 08/05/16 10:57 ENVIRONMENTAL/SEASONAL Allergy Unknown Uncoded 12/29/13 10:09 HAYFEVER Reaction Details PMH/Surg Hx/FS Hx/Imm Hx Endocrine/Hematology History: Reports: Hx Diabetes Cardiovascular History: Reports: Hx Hypertension Denies: Hx Pacemaker/ICD GI History: Reports: Hx Gastroesophageal Reflux Disease - CONTROL WITH MEDICATION History: Reports: Hx Kidney Stones - long time ago - passed Musculoskeletal History: Reports: Hx Arthritis - RHEUMATOID ARTHRITIS, Other Musculoskeletal History - right wrist carpal tunnel syndrome Denies: Hx Osteoporosis Sensory History: Reports: Hx Contacts or Glasses - glasses Denies: Hx Hearing Aid Opthamlomology History: Reports: Hx Contacts or Glasses - glasses Psychiatric History: Reports: Hx Anxiety - HX OF, Hx Depression - HX OF Denies: Hx Panic Disorder - Cancer History Cancer Type, 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 Hx Chemotherapy: No Hx Radiation Therapy: No - Surgical History Surgery Procedure, Year, and Place: BILATERAL CATARACT EXTRACTION WITH IOL IMPLANT,APPENDECTOMY,DEVIATED SEPTUM REPAIR,BX BOTH TEMPLES Hx Anesthesia Reactions: No Infectious Disease History: No Infectious Disease History: Denies: Traveled Outside the [place] in Last 30 Days - Family History Known Family History: Positive: Cardiac Disease Negative: Hypertension, Diabetes - Social History Alcohol Use: None Substance Use Type: Reports: None Smoking Status (MU): Never Smoked Tobacco Review of Systems Positive: Other - Changes in speech. Positive: Chest Pain Negative: Shortness Of Breath Negative: Abdominal Pain Positive: frequency Musculoskeletal: Other - No hip pain. Positive: Other - Staggering with ambulation. Dragging of bilateral lower extremities. Numbness and tingling of upper extremities. Positive: Other - Left knee abrasion. Neurological: Other - Dizziness. No LOC. No room spinning dizziness. All Other Systems Reviewed And Are Negative: Yes Physical Exam - Summary Physical Exam Summary: The patient is well-nourished in no acute distress and in no acute pain. The skin is warm and dry and skin color reflects adequate perfusion. Abrasion to left knee. HEENT: The head is normocephalic and atraumatic. The pupils are equal and reactive. The conjunctivae are clear and without drainage. No nystagmus. Neck is supple with full range of motion and non-tender. Respiratory: Chest is non-tender. Lungs are clear to auscultation and breath sounds are symmetrical and equal. Cardiovascular: Hear is regular rate and rhythm. There is no murmur or rub auscultated. There is no peripheral edema and pulses are symmetrical and equal. Abdomen: The abdomen is soft, non-tender, and obese. Musculoskeletal: There is no back pain noted. Extremities are non-tender with full range of motion. There is good capillary refill. No motor weakness. Hips non-tender. Neurological: Patient is alert and oriented to person, place and time. The patient has symmetrical motor strength in all four extremities. Cranial nerves are grossly intact. Deep tendon reflexes are symmetrical and equal in all four extremities. No rich sign. No facial droop. No pronator drift. [id number] is intact. Psychiatric: The patient has an appropriate affect and does not exhibit any anxiety or depression. Triage Information Reviewed: Yes Vital Signs On Initial Exam: Initial Vitals Temp Pulse Resp BP Pulse Ox 98.8 F 83 24 142/64 96 03/25/17 15:37 03/25/17 15:37 03/25/17 15:37 03/25/17 15:37 03/25/17 15:37 Vital Signs Reviewed: Yes - [place] Coma Scale Coma Scale Total: 15 Diagnostics - Vital Signs Vital Signs Temp Pulse Resp BP Pulse Ox 03/25/17 15:45 82 21 96 03/25/17 15:37 98.8 F 83 24 142/64 96 - Laboratory Lab Results: Lab Results 03/25/17 03/25/17 03/25/17 Range/Units 15:55 15:55 15:55 WBC 11.6 H (3.5-10.8) 10^3/ul RBC 4.42 (4.0-5.4) 10^6/ul Hgb 12.8 (12.0-16.0) g/dl Hct 39 (35-47) % MCV 88 (80-97) fL MCH 29 (27-31) pg MCHC 33 (31-36) g/dl RDW 17 H (10.5-15) % Plt Count 226 (150-450) 10^3/ul MPV 9 (7.4-10.4) um3 Neut % (Auto) 61.6 (38-83) % Lymph % (Auto) 28.0 (25-47) % [place] % (Auto) 7.1 (1-9) % Eos % (Auto) 2.2 (0-6) % Baso % (Auto) 1.1 (0-2) % Absolute Neuts (auto) 7.2 (1.5-7.7) 10^3/ul Absolute Lymphs (auto) 3.3 (1.0-4.8) 10^3/ul Absolute Monos (auto) 0.8 (0-0.8) 10^3/ul Absolute Eos (auto) 0.3 (0-0.6) 10^3/ul Absolute Basos (auto) 0.1 (0-0.2) 10^3/ul Absolute Nucleated RBC 0.01 10^3/ul Nucleated RBC % 0.1 Sodium 139 (133-145) mmol/L Potassium 3.5 (3.5-5.0) mmol/L Chloride 102 (101-111) mmol/L Carbon Dioxide 31 (22-32) mmol/L Anion Gap 6 (2-11) mmol/L BUN 14 (6-24) mg/dL Creatinine 0.53 (0.51-0.95) mg/dL Est GFR ( Amer) 143.1 (>60) Est GFR (Non-Af Amer) 111.3 (>60) BUN/Creatinine Ratio 26.4 H (8-20) Glucose 111 H (70-100) mg/dL Lactic Acid 1.3 (0.5-2.0) mmol/L Calcium 9.5 (8.6-10.3) mg/dL Total Bilirubin 0.40 (0.2-1.0) mg/dL AST 18 (13-39) U/L ALT 25 (7-52) U/L Alkaline Phosphatase 57 (34-104) U/L Troponin I 0.01 (<0.04) ng/mL Total Protein 6.7 (6.4-8.9) g/dL Albumin 3.9 (3.2-5.2) g/dL Globulin 2.8 (2-4) g/dL Albumin/Globulin Ratio 1.4 (1-3) Result Diagrams: 03/25/17 15:55 03/25/17 15:55 Lab Statement: Any lab studies that have been ordered have been reviewed, and results considered in the medical decision making process. - Radiology CXR Radiology Interpretation Completed By: Radiologist - IMPRESSION: PULMONARY VASCULAR CONGESTION - CT BRAIN CT Interpretation Completed By: Radiologist - IMPRESSION: 1. No acute intracranial process evident. 2. Mild to moderate involutional change. - EKG 1655 EKG Interpretation: NSR @ [address]pm[address] elevation. Re-Evaluation - Re-Evaluation First Eval Re-Evaluation Time: 19:22 Change: Improved Comment: Discussed imaging and lab. Second Eval Re-Evaluation Time: 19:56 Comment: Pt was ambulated. She is OK to be DC'd. Dizzy Course/Dx - Course Course Of Treatment: 81 y/o F presents with intermittent, but reoccurring dizziness. She denies LOC, room spinning dizziness, SOB, abd pain, or changes in speech, but reports staggering with ambulation, dragging of bilateral lower extremities, numbness and tingling of upper extremities, occasional mid-sternal pain, and urinary frequency. Pt also denies hip pain, but reports abrasion to left knee. She received fluids and Antivert in the ED course. Pt will be DC'd with instructions. - Diagnoses Differential Diagnosis/HQI/PQRI: Benign Paroxysmal Positional Vertigo, Coronary Artery Disease, Hypovolemia, Labyrinthitis, Metabolic Abnormality Provider Diagnoses: Vertigo Discharge - Discharge Plan Condition: Stable Disposition: HOME Prescriptions: Meclizine TAB* [Antivert 12.5 TAB*] 25 mg PO TID PRN #30 tab PRN Reason: dizziness Patient Education Materials: Vertigo (ED) Referrals: Ashley Reyes MD [Primary Care Provider] - Additional Instructions: Please follow up with your primary care provider. The documentation as recorded by the Ger oleary Salem accurately reflects the service I personally performed and the decisions made by , Gen Gordon MD.
[2017-03-25 20:28] VITALS: BP 118/85
== END 2017-03-25 20:27 | disposition home or self-care (01) ==
LOC: ED 15:33
DX: R42 Dizziness and giddiness (principal); S80.212A Abrasion, left knee, initial encounter; R07.9 Chest pain, unspecified; W19.XXXA Unspecified fall, initial encounter; Y93.9 Activity, unspecified; Y92.9 Unspecified place or not applicable
CPT/HCPCS: 36415; 70450; 71010; 80053; 81003; 81015; 83605; 83880; 84484; 85025; 87086; 93005; 99284; A9270-GY

== ENCOUNTER → 2018-11-20 15:43 | Emergency (ER) | payer MEDICAID, MEDICARE ==
[~2018-11-20 15:43] MED LIST: Levofloxacin 750 MG IVPREMIX(* 750 MG/150 ML BAG IVPB ONE; NS 0.9% 1000 ML** 1,000 ML IV ONE
--- NOTE | 2018-11-20 17:01 | ED ---
Back Pain - HPI Summary HPI Summary: 83 year old F brought in by EMS from [facility] to [facility] accompanied by daughter with a chief complaint of back pain s/p mechanical fall around 14:00 today. The patient rates the pain 0/10 in severity. Symptoms aggravated by nothing. Symptoms alleviated by nothing. Patient reports dizziness, fatigue. Daughter reports that when patient was found on floor, unable to talk. Patient has hx fall in summer 2017. She was admitted to [facility] [place] 3 days after this fall in 2018. - History of Current Complaint Chief Complaint: EDBackInjuryPain Stated Complaint: FALL Time Seen by Provider: 11/20/18 16:32 Hx Obtained From: Patient, Family/Spot Welder - Mother Onset/Duration: Lasting Hours - 14:00 today, Still Present Onset/Duration: Started Hours Ago - 14:00 today, Still Present Timing: Constant Severity Currently: None Pain Intensity: 0 Pain Scale Used: 0-10 Numeric Aggravating Symptom(s): Nothing Alleviating Symptom(s): Nothing Associated Signs And Symptoms: Positive: Other - dizziness, fatigue - Allergies/Home Medications Allergies/Adverse Reactions: Allergies Allergy/AdvReac Type Severity Reaction Status Date / Time Beta-Blockers Allergy Coughing Verified 11/20/18 16:12 (Beta-Adrenergic Bloc seasonal Allergy Eyes Uncoded 11/20/18 16:12 Itchy/Swollen/Red/Watery Home Medications: Home Medications Capsaicin [Capsaicin Hot Patch] 1 applic TOPICAL Q8H PRN 11/20/18 [History Confirmed 11/20/18] Diclofenac Sodium [Voltaren] 1 applic TOPICAL TID PRN 11/20/18 [History Confirmed 11/20/18] Glucosamine/D3/Boswellia Camila [Osteo Bi-Flex Caplet] 1 tab PO BID 11/20/18 [ History Confirmed 11/20/18] Hydrocodone/Acetaminophen [Hydrocodone-Acetamin 5-325 mg] 1 tab PO BID PRN 11/20 [History Confirmed 11/20/18] Leucovorin TAB* 5 mg PO WEEKLY 11/20/18 [History Confirmed 11/20/18] Lidocaine 1 patch TOPICAL DAILY 11/20/18 [History Confirmed 11/20/18] Pregabalin [Lyrica] 200 mg PO BEDTIME 11/20/18 [History Confirmed 11/20/18] Preservision Areds Softgel 1 cap PO DAILY 11/20/18 [History Confirmed 11/20/18] PMH/Surg Hx/FS Hx/Imm Hx Previously Healthy: No Endocrine/Hematology History: Reports: Hx Diabetes Cardiovascular History: Reports: Hx Hypertension Denies: Hx Pacemaker/ICD GI History: Reports: Hx Gastroesophageal Reflux Disease - CONTROL WITH MEDICATION History: Reports: Hx Kidney Stones - long time ago - passed Musculoskeletal History: Reports: Hx Arthritis - RHEUMATOID ARTHRITIS, Other Musculoskeletal History - right wrist carpal tunnel syndrome Denies: Hx Osteoporosis Sensory History: Reports: Hx Contacts or Glasses - glasses Denies: Hx Hearing Aid Opthamlomology History: Reports: Hx Contacts or Glasses - glasses Psychiatric History: Reports: Hx Anxiety - HX OF, Hx Depression - HX OF Denies: Hx Panic Disorder - Cancer History Cancer Type, 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 Hx Chemotherapy: No Hx Radiation Therapy: No - Surgical History Surgery Procedure, Year, and Place: BILATERAL CATARACT EXTRACTION WITH IOL IMPLANT,APPENDECTOMY,DEVIATED SEPTUM REPAIR,BX BOTH TEMPLES Hx Anesthesia Reactions: No Infectious Disease History: No Infectious Disease History: Denies: Traveled Outside the [place] in Last 30 Days - Family History Known Family History: Positive: Cardiac Disease Negative: Hypertension, Diabetes - Social History Alcohol Use: None Hx Substance Use: No Substance Use Type: Reports: None Hx Tobacco Use: No Smoking Status (MU): Never Smoked Tobacco Review of Systems Positive: Fatigue Positive: Other - back pain Neurological: Other - Dizziness All Other Systems Reviewed And Are Negative: Yes Physical Exam - Summary Physical Exam Summary: Appearance: The patient is well-nourished in no acute distress and in no acute pain. Skin: The skin is warm and dry and skin color reflects adequate perfusion. HEENT: The head is normocephalic and atraumatic. The pupils are equal and reactive. The conjunctivae are clear and without drainage. Nares are patent and without drainage. Mouth reveals moist mucous membranes and the throat is without erythema and exudate. The external ears are intact. The ear canals are patent and without drainage. The tympanic membranes are intact. Neck: The neck is supple with full range of motion and non-tender. There are no carotid bruits. There is no neck vein distension. Respiratory: Chest is non-tender. Lungs are clear to auscultation and breath sounds are symmetrical and equal. Cardiovascular: Heart is regular rate and rhythm. There is no murmur or rub auscultated. There is no peripheral edema and pulses are symmetrical and equal. Abdomen: The abdomen is soft and non-tender. There are normal bowel sounds heard in all four quadrants and there is no organomegaly palpated. Musculoskeletal: There is no back tenderness noted. Extremities are non-tender with full range of motion. There is good capillary refill. There is no peripheral edema or calf tenderness elicited. Neurological: Patient is alert and oriented to person, place and time. The patient has symmetrical motor strength in all four extremities. Cranial nerves are grossly intact. Deep tendon reflexes are symmetrical and equal in all four extremities. Psychiatric: The patient has an appropriate affect and does not exhibit any anxiety or depression Triage Information Reviewed: Yes Vital Signs On Initial Exam: Initial Vitals Temp Pulse Resp BP Pulse Ox 97.2 F 97 21 138/77 100 11/20/18 15:48 11/20/18 15:48 11/20/18 15:48 11/20/18 15:48 11/20/18 15:48 Vital Signs Reviewed: Yes Diagnostics - Vital Signs Vital Signs Temp Pulse Resp BP Pulse Ox 11/20/18 16:00 94 21 97 11/20/18 15:54 98 20 138/77 99 11/20/18 15:53 101 24 99 11/20/18 15:48 97.2 F 97 21 138/77 100 - Laboratory Result Diagrams: 11/20/18 17:39 11/20/18 17:39 Lab Statement: Any lab studies that have been ordered have been reviewed, and results considered in the medical decision making process. Back Pain Course/Dx - Course Course Of Treatment: Ms. Barahona had an apparent syncopal episode earlier that was unwitnessed. She cannot give a clear history of what happened. She was nontoxic in appearance and her vitals are stable. She was kept on a monitor here and labs were obtained. All the labs were unremarkable aside from her UA which indicates a UTI. She remained in stable condition. I will treat her UTI and recommend early and close follow-up. - Diagnoses Provider Diagnoses: Urinary tract infection Discharge - Sign-Out/Discharge Documenting (check all that apply): Patient Departure - Discharge Patient Received Moderate/Deep Sedation with Procedure: No - Discharge Plan Condition: Stable Disposition: HOME Prescriptions: Ciprofloxacin TAB* [Cipro Tab*] 500 mg PO BID #14 tab Patient Education Materials: Urinary Tract Infection in Women (ED), Urinary Tract Infection in Older Adults (ED) Referrals: Ashley Reyes MD [Primary Care Provider] - 3 Days Additional Instructions: Follow up with your primary care provider in 3 days. Return to the Emergency Department for new or worsening symptoms. - Billing Disposition and Condition Condition: STABLE Disposition: Home - Attestation Statements Document Initiated by Scribe: Yes Documenting Scribe: Kimberly Sahu Provider For Whom Chelly is Documenting (Include Credential): Chang Stewart MD Scribe Attestation: Kimberly Rodriguez, scribed for Chang Stewart MD on 11/21/18 at 2048. Scribe Documentation Reviewed: Yes Provider Attestation: The documentation as recorded by the Kimberly oleary accurately reflects the service I personally performed and the decisions made by me, Chang Stewart MD Status of Scribe Document: Viewed
[2018-11-20 17:50] LABS: ABS Basophils 0.1 10^3/ul (0-0.2); ABS Eosinophils 0.1 10^3/ul (0-0.6); ABS Lymphocytes 3.1 10^3/ul (1.0-4.8); ABS Monocytes 0.8 10^3/ul (0-0.8); ABS Neutrophils 10.5 10^3/ul (1.5-7.7); ABS Nucleated RBC 0 10^3/ul; Eosinophil % 0.9 %; Hematocrit 42 % (35-47); Hemoglobin 13.6 g/dl (12.0-16.0); Lymphocyte % 21.2 %; Mean Corpuscular HGB Conc 33 g/dl (31-36); Mean Corpuscular Hemoglobin 28 pg (27-31); Mean Corpuscular Volume 87 fL (80-97); Mean Platelet Volume 9.4 fL (7.4-10.4); Nucleated Red Blood Cells % 0.1; Platelet Count 206 10^3/ul (150-450); Red Cell Distribution Width 16 % (10.5-15); White Blood Count 14.6 10^3/ul (3.5-10.8)
[2018-11-20 17:56] LABS: Urine Appearance Cloudy; Urine Bacteria 2+ (Absent); Urine Bilirubin Negative (Negative); Urine Blood Negative (Negative); Urine Color Yellow; Urine Glucose Negative (Negative); Urine Ketones Negative (Negative); Urine Nitrite Positive (Negative); Urine Protein Negative (Negative); Urine Red Blood Cell 2+(6-10/hpf) (Absent); Urine Specific Gravity 1.017 (1.010-1.030); Urine Squamous Epithelial Cell Present (Absent); Urine Urobilinogen Negative (Negative); Urine White Blood Cell 3+(>20/hpf) (Absent)
[2018-11-20 18:09] LABS: Albumin 4.1 g/dL (3.2-5.2); Albumin/Globulin Ratio 1.5 (1-3); BUN/Creatinine Ratio 32.6 (8-20); Calcium 9.5 mg/dL (8.6-10.3); EGFR African American 157.8 (>60); EGFR Non-African American 130.4 (>60); Globulin 2.7 g/dL (2-4); Magnesium 1.9 mg/dL (1.9-2.7); Potassium 3.9 mmol/L (3.5-5.0); Total Bilirubin 0.4 mg/dL (0.2-1.0); Total Protein 6.8 g/dL (6.4-8.9)
[2018-11-20 18:10] LABS: Troponin I 0.01 ng/mL (<0.04)
[2018-11-20 18:44] LABS: TSH (Thyroid Stimulating Horm) 0.81 mcIU/mL (0.34-5.60)
[2018-11-20 20:22] VITALS: BP 142/67
--- NOTE | 2018-11-23 11:16 | PN ---
Progress Note - Progress Note Date of Service: 11/20/18 Note: Urine culture final grew Escherichia coli Patient placed on ciprofloxacin prior to discharge This is sensitive to organism Nothing further at this time
== END | disposition home or self-care (01) ==
LOC: ED 15:43
DX: N39.0 Urinary tract infection, site not specified (principal); R42 Dizziness and giddiness; R53.83 Other fatigue; E11.9 Type 2 diabetes mellitus without complications; I10 Essential (primary) hypertension; K21.9 Gastro-esophageal reflux disease without esophagitis; Z87.442 Personal history of urinary calculi
CPT/HCPCS: 36415; 80053; 81003; 81015; 83605; 83735; 84443; 84484; 85025; 85379; 87077; 87086; 87186; 96365; 96366; 99283

== ENCOUNTER 2019-05-24 20:41 | Inpatient (IN) | payer MEDICARE, MEDICAID ==
--- NOTE | 2019-05-24 20:43 | ED ---
Back Pain - HPI Summary HPI Summary: 83 yo female presents to [facility] [place] [facility] via EMS accompanied by daughter with complaints of low back pain. Pt speaks limited Slovak, thus the interview is translated by daughter. They tells me that pt has a history of low back pain and has norco for this that she takes occasionally. Daughter tells me that pt called her about 1 hour [employer] saying that she tried to get out of bed and felt a sharp pain in her lower back and for daughter to come over to help her. Daughter arrived and found pt leaning awkwardly on the side of the bed with her back in hyperextension. She called EMS due to degree of pain. They were able to move pt to stretcher with EMS help. Currently pt is comfortable lying still, but has pain in her lower back with movement. Has not taken any medication today for her discomfort. Denies injury, radiation of pain, SOB, chest pain, abdominal pain, n/v, saddle anesthesia, dysuria, numbness, or tingling. Pt does have a hx of frequent falls and was admitted within the last week for polypharmacy and AMS due to sedation and fall. - History of Current Complaint Stated Complaint: "BACK PAIN PER EMS" Time Seen by Provider: 05/24/19 20:43 Hx Obtained From: Patient, Family/Tubing Assembler Onset/Duration: Sudden Onset Severity Initially: Severe Severity Currently: Moderate Pain Intensity: 8 Pain Scale Used: 0-10 Numeric Aggravating Symptom(s): Movement Alleviating Symptom(s): Rest, Position - Allergies/Home Medications Allergies/Adverse Reactions: Allergies Allergy/AdvReac Type Severity Reaction Status Date / Time Beta-Blockers Allergy Coughing Verified 11/26/18 12:33 (Beta-Adrenergic Bloc seasonal Allergy Eyes Uncoded 11/26/18 12:33 Itchy/Swollen/Red/Watery PMH/Surg Hx/FS Hx/Imm Hx Endocrine/Hematology History: Reports: Hx Diabetes Cardiovascular History: Reports: Hx Hypertension Denies: Hx Pacemaker/ICD GI History: Reports: Hx Gastroesophageal Reflux Disease - CONTROL WITH MEDICATION History: Reports: Hx Kidney Stones - long time ago - passed Denies: Hx Renal Disease Musculoskeletal History: Reports: Hx Arthritis - RHEUMATOID ARTHRITIS, Other Musculoskeletal History - right wrist carpal tunnel syndrome Denies: Hx Osteoporosis Sensory History: Reports: Hx Contacts or Glasses - glasses Denies: Hx Hearing Aid Opthamlomology History: Reports: Hx Contacts or Glasses - glasses Psychiatric History: Reports: Hx Anxiety - HX OF, Hx Depression - HX OF Denies: Hx Panic Disorder - Cancer History Cancer Type, 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 APPENDECTOMY,. DEVIATED SEPTUM REPAIR,. BX BOTH TEMPLES. RIGHT WRIST CARPAL TUNNEL RELEASE Hx Anesthesia Reactions: No - Family History Known Family History: Positive: Cardiac Disease Negative: Hypertension, Diabetes - Social History Lives: Alone Alcohol Use: None Hx Substance Use: No Substance Use Type: Reports: None Hx Tobacco Use: No Smoking Status (MU): Never Smoked Tobacco Review of Systems Constitutional: Negative Cardiovascular: Negative Respiratory: Negative Gastrointestinal: Negative Genitourinary: Negative Musculoskeletal: Other - Low back pain Skin: Negative Neurological: Negative Psychological: Normal All Other Systems Reviewed And Are Negative: Yes Physical Exam - Summary Physical Exam Summary: GENERAL: NAD. WDWN. No pain distress. SKIN: No rashes, sores, lesions, or open wounds. NECK: Supple. FROM. Nontender. No lymphadenopathy. CHEST: CTAB. No r/r/w. No accessory muscle use. Breathing comfortably and in no distress. CV: RRR. Without m/r/g. Pulses intact. Cap refill <2seconds MSK: TTP over lumbar paraspinal muscles. High lumbar vertebral tenderness. Pain with flexion and extension of spine. Positive SLR b/l for low back pain without radiation. Strength 5/5 B/L LEs including dorsiflexion and plantar flexion. No abdominal or lower back ecchymosis. NEURO: Alert. Sensations intact B/L LEs L3-S1. Reflexes intact PSYCH: Age appropriate behavior. Triage Information Reviewed: Yes Vital Signs On Initial Exam: Vital Signs: Temp Pulse Resp BP Pulse Ox 96.1 F 84 18 175/83 97 05/24/19 20:50 05/24/19 20:50 05/24/19 20:50 05/24/19 20:50 05/24/19 20:50 Vital Signs Reviewed: Yes Diagnostics - Laboratory Lab Results: Laboratory Tests 05/24/19 05/24/19 23:26 23:26 WBC 14.4 H RBC 4.37 Hgb 12.4 Hct 37 MCV 85 MCH 28 MCHC 33 RDW 15 Plt Count 180 MPV 9.3 Neut % (Auto) 67.5 Lymph % (Auto) 23.0 [place] % (Auto) 7.3 Eos % (Auto) 1.3 Baso % (Auto) 0.9 Absolute Neuts (auto) 9.7 H Absolute Lymphs (auto) 3.3 Absolute Monos (auto) 1.1 H Absolute Eos (auto) 0.2 Absolute Basos (auto) 0.1 Absolute Nucleated RBC 0.0 Nucleated RBC % 0.0 Sodium 141 Potassium 3.4 L Chloride 103 Carbon Dioxide 30 Anion Gap 8 BUN 14 Creatinine 0.39 L Est GFR ( Amer) 190.9 Est GFR (Non-Af Amer) 157.7 BUN/Creatinine Ratio 35.9 H Glucose 114 H Calcium 9.3 Total Bilirubin 0.50 AST 27 ALT 26 Alkaline Phosphatase 62 Total Protein 6.5 Albumin 3.9 Globulin 2.6 Albumin/Globulin Ratio 1.5 Result Diagrams: 05/24/19 23:26 05/24/19 23:26 Lab Statement: Any lab studies that have been ordered have been reviewed, and results considered in the medical decision making process. - CT Derrick CT Interpretation Completed By: Radiologist Summary of CT Findings: IMPRESSION: 1. No traumatic intracranial abnormalities. 2. Age-related atrophy and stable mild chronic small vessel ischemic disease. Cervical CT Interpretation Completed By: Radiologist Summary of CT Findings: IMPRESSION: 1. No cervical spine traumatic abnormalities. 2. Mild multilevel cervical spondylopathy. Thoracic CT Interpretation Completed By: Radiologist Summary of CT Findings: IMPRESSION: 1. Acute traumatic transverse fracture through the T12 vertebral body. No additional traumatic thoracic spine abnormalities. 2. Mild multilevel thoracic spondylopathy. Lumbar CT Interpretation Completed By: Radiologist Summary of CT Findings: IMPRESSION: 1. Acute traumatic transverse fracture of the T12 vertebral body. No lumbar spine traumatic abnormalities. 2. Mild multilevel lumbar spondylopathy. 3. Right nephrolithiasis. Back Pain Course/Dx - Course Course Of Treatment: In the ED course CT revealed T12 traumatic vertebral fracture. I discussed the case with Neurosurg who recommends keeping pt in bed, obtaining an MRI, and admitting to hospitalist service. She rated her pain 1/10 when lying in the stretcher, but significantly increased to 8-10/10 when moving or palpating the area. She was not given anything po or IV for her pain in the ED course as she has a history of polypharmacy with sedation and AMS due to this. I believe pt would benefit from short term rehab and/or assisted living placement. Hospitalist accepts pt for admission. Pt agreeable with plan. - Diagnoses Provider Diagnoses: T12 vertebral fracture, Frequent falls - Provider Notifications Discussed Care Of Patient With: Logan Moore - Admit to hospitalist. Keep pt in bed. MRI of area. He will see pt in the morning Instructed by Provider To: Admit As Inpatient Discharge ED - Sign-Out/Discharge Documenting (check all that apply): Patient Departure Patient Received Moderate/Deep Sedation with Procedure: No - Discharge Plan Condition: Stable Disposition: ADMITTED TO [facility] Referrals: Ashley Reyes MD [Primary Care Provider] - - Billing Disposition and Condition Condition: STABLE Disposition: Ad[facility] to [facility]
[2019-05-24 23:36] LABS: ABS Basophils 0.1 10^3/ul (0-0.2); ABS Eosinophils 0.2 10^3/ul (0-0.6); ABS Lymphocytes 3.3 10^3/ul (1.0-4.8); ABS Monocytes 1.1 10^3/ul (0-0.8); ABS Neutrophils 9.7 10^3/ul (1.5-7.7); Eosinophil % 1.3 %; Hematocrit 37 % (35-47); Hemoglobin 12.4 g/dL (12.0-16.0); Mean Corpuscular HGB Conc 33 g/dL (31-36); Mean Corpuscular Hemoglobin 28 pg (27-31); Mean Corpuscular Volume 85 fL (80-97); Mean Platelet Volume 9.3 fL (7.4-10.4); Platelet Count 180 10^3/uL (150-450); Red Blood Count 4.37 10^6 /uL (3.70-4.87); Red Cell Distribution Width 15 % (10-15); White Blood Count 14.4 10^3/uL (3.5-10.8)
[2019-05-24] MEDS ORDERED: HYDROcodone/ACETAMIN 5-325 MG* 1 TAB PO PRN (23:48)
[2019-05-24] MEDS ORDERED: Ketorolac INJ* 30 MG/ML 1 ML VIAL IV PUSH PRN (23:51)
[2019-05-24 23:54] LABS: Albumin 3.9 g/dL (3.2-5.2); Albumin/Globulin Ratio 1.5 (1-3); BUN/Creatinine Ratio 35.9 (8-20); Calcium 9.3 mg/dL (8.6-10.3); EGFR African American 190.9 (>60); EGFR Non-African American 157.7 (>60); Globulin 2.6 g/dL (2-4); Potassium 3.4 mmol/L (3.5-5.0); Total Bilirubin 0.5 mg/dL (0.2-1.0); Total Protein 6.5 g/dL (6.4-8.9)
[2019-05-25] MEDS ORDERED: Ondansetron INJ* 2 MG/ML VIAL IV PRN (00:02)
[2019-05-25] MEDS ORDERED: Cyclobenzaprine TAB* 10 MG PO PRN (00:03)
[2019-05-25] MEDS ORDERED: traZODone TAB* 50 MG TAB PO PRN (00:06)
[2019-05-25] MEDS: Acetaminophen TAB* 325 MG PO SCH ×5 (00:16→17:52)
[2019-05-25 00:24] LABS: Urine Appearance Cloudy; Urine Bacteria Absent (Absent); Urine Bilirubin Negative (Negative); Urine Blood 1+ (Negative); Urine Color Yellow; Urine Glucose Negative (Negative); Urine Ketones 2+ (Negative); Urine Nitrite Negative (Negative); Urine Protein 1+(30 mg/dL) (Negative); Urine Red Blood Cell 2+(6-10/hpf) (Absent); Urine Specific Gravity 1.024 (1.010-1.030); Urine Urobilinogen Negative (Negative); Urine White Blood Cell 1+(6-10/hpf) (Absent)
[2019-05-25] MEDS: Enoxaparin(*) 40 MG/0.4 ML SYR SUBCUT SCH ×2 (02:47→20:52)
--- NOTE | 2019-05-25 04:26 | HP ---
HISTORY AND PHYSICAL: DATE OF ADMISSION: 05/24/19 PRIMARY CARE PROVIDER: Dr. Reyes. HUMAN RESOURCES EXECUTIVE ASSISTANT: Shivam Barahona, the patient's . CODE STATUS: Full. CHIEF COMPLAINT: Low back pain. REASON FOR ADMISSION: Acute T12 fracture. SOURCE OF INFORMATION: HPI is obtained from the patient. She is a fair to poor historian secondary to mild confusion at baseline as well as language barrier. Patient primarily speaks Filipino and Bulgarian; a pump and blower operator was used, although without much significant improvement in gathering of HPI secondary to her forgetfulness. HISTORY OF PRESENT ILLNESS: 83-year-old female with a past medical history of rheumatoid arthritis and fibromyalgia; chronic pain, on long-term opioid therapy and significant polypharmacy; hypertension; GERD; anxiety and depression ; history of falls with a recent admission from 05/21/19 to 05/22/19 for sedation secondary to polypharmacy, who is presenting to the emergency room for acute low back pain. The patient is a poor historian at baseline, but states that since her discharge, she has had off and on low back pain that has been slightly worsening with recent med reduction, really going on for the last 10 days, although acutely worse since she got out of the hospital on 05/22/19. She reports she was doing some laundry earlier in the afternoon and at around 5 o'clock, she said that she needed to go lie down on bed. She tried to get out of bed after some time and go to the bathroom, but as she was doing do so, she got about mcc out and she said that she had back spasm, she arched her back and she fell mcc out of bed. She called her daughter who came to the apartment and found her with her shoulders and back in bed, but her lower half of her body out of bed and dangling and she said that she was in a significant amount of pain and thus they decided to bring her to the emergency room. Her daughter also notes that she has been off and on confused for the last 10 days, which was attributed in her last hospitalization to the medications that she was taking and she endorses no other significant review of systems other than this subacute confusion and worsening low to mid back pain. The patient herself reports that the back pain is mid back in the center without radiation, dull, and achy, but becomes sharp and shooting with movement. It is made worse by lifting her leg. She has no numbness or tingling or decreased sensation and she has full motor strength in her lower extremity. EMERGENCY ROOM COURSE: In the ER, blood pressure is 175/83, temperature is 96.1 , heart rate is 84, she is satting 97% on room air. At time of neuropsychologist, labs are not done, although from 05/22/19, they were unremarkable. UA and culture were done on 05/22/19 and they were unremarkable from her last hospitalization. A chest x-ray was done, which showed mildly increased interstitial markings. A CT head was done, which showed age-related atrophy and small vessel disease. CT of cervical spine, thoracic spine, and lumbar spine were done, which showed acute traumatic T12 transverse fracture and otherwise chronic, stable DJD and spondylolisthesis with an incidental nephrolithiasis on the right kidney. Neurosurgery is consulted in the emergency room, who recommended to admit the patient for pain control and to be consulted in the morning and the hospitalists were asked to further evaluate and treat the patient. PAST MEDICAL HISTORY: 1. Rheumatoid arthritis and fibromyalgia. 2. Chronic low back pain, on long-term opioid therapy. 3. Hypertension. 4. GERD. 5. Anxiety and depression. 6. History of falls. PAST SURGICAL HISTORY: The patient endorses eye surgery. MEDICATIONS: 1. Vitamin D3 of 1000 units p.o. daily. 2. Diclofenac gel 1 application topical q.8 hours p.r.n. to back. 3. Dorzolamide 2% ophthalmic drops 1 drop both eyes b.i.d. 4. Glucosamine/chondroitin 1 tab p.o. b.i.d. 5. Leucovorin 5 mg p.o. weekly. 6. Lidocaine patch, 1 patch transdermally apply daily to the area of most pain. 7. Melatonin 5 mg p.o. q.h.s. 8. Methotrexate 15 mg p.o. weekly. 9. Pregabalin 150 mg p.o. q.h.s., 100 mg p.o. q.a.m. 10. Triamcinolone 0.1% cream 1 application topical b.i.d. p.r.n. 11. PreserVision AREDS soft gel vitamins 1 cap p.o. b.i.d. 12. Zolpidem 5 mg p.o. q.h.s. p.r.n. 13. Tylenol 650 mg p.o. q.4 hours p.r.n. 14. Amitriptyline 50 mg p.o. q.h.s. 15. Amlodipine 5 mg p.o. daily. 16. Cyanocobalamin 500 mg p.o. daily. 17. Folic acid 1 tab p.o. daily. 18. Hydrochlorothiazide 25 mg p.o. daily. 19. Hydrocodone/acetaminophen 5/325 mg 1 tab p.o. b.i.d. p.r.n. for pain. 20. Losartan 100 mg p.o. daily. 21. Pravastatin 20 mg p.o. daily. 22. Timolol 0.25% ophthalmic solution 1 drop both eyes daily. ALLERGIES: To BETA-BLOCKERS and SEASONAL ALLERGIES. SOCIAL HISTORY: The patient lives in [facility] alone. Her family including her , daughter, and granddaughter are domiciled in a house 2 blocks away and they check on her daily. 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 She is a lifetime nontobacco user, nonalcohol user, and nonillicit user. She ambulates independently, although intermittently uses a walker for long distance or with new surroundings. She is independent in her ADLs, but receives assistance in all other IADLs. FAMILY HISTORY: Her mother was healthy and from old age. Her father had diabetes and diagnosed late in life. REVIEW OF SYSTEMS: Difficult to ascertain in this patient secondary to language barrier as well as forgetfulness, although Constitutional: She denies fevers or chills. HEENT: She denies headache, vision changes, sore throat. Cardiovascular: Denies chest pain, palpitations. Respiratory: Denies shortness of breath or cough. GI: Denies nausea, vomiting, abdominal pain, or constipation. : Denies dysuria or hematuria. Musculoskeletal: She endorses myalgias and arthralgias and some weakness. Skin: Denies any rashes or lesions. Neurologic: Denies focal weakness or numbness. Psychiatric: Denies anxiety. She does endorse mild depression. Endocrine: Negative for polyuria, polydipsia. Heme: Negative for easy bruising, bleeding, or lymphadenopathy. PHYSICAL EXAMINATION GENERAL APPEARANCE: This is a overweight, well-appearing woman, in no acute distress, pleasant, lying down in bed. VITAL SIGNS: At the time of physical exam, blood pressure 160/80, heart rate 80 , respiratory rate 15, oxygen saturation is 95% on room air. HEENT: Pupils are equal and reactive. Extraocular muscles are intact. Sclerae anicteric. Mucous membranes are moist. NECK: Supple with no supraclavicular or cervical lymphadenopathy. RESPIRATORY: Lungs are clear to auscultation bilaterally. CARDIAC: She has regular rate and rhythm with 3/6 systolic ejection murmur that radiates to bilateral carotids. ABDOMEN: Belly is soft, nontender, nondistended with normoactive bowel sounds and no organomegaly. SKIN: Without rashes or lesions. LOWER EXTREMITIES: Warm and well perfused with 2+ pulses. No edema noted. MUSCULOSKELETAL: She has acute tenderness to palpation throughout her mid back and limited range of motion secondary to pain. NEURO: Cranial nerves II through XII are intact. She has 5/5 strength in all 4 extremities and sensation intact throughout. She has no focal neurological deficits. She is oriented to herself, to place, to year, to event, although needs frequent reorientation and prompting even with interview in her [place] language, which is Filipino, although Bulgarian was also used. LABORATORY DATA/DIAGNOSTIC STUDIES: CBC shows a white blood cell count of 14.4 , hemoglobin 12.4, hematocrit 37, platelets 180. BMP shows sodium 141, potassium 3.4, chloride 103, creatinine 0.39, BUN 14, glucose 114. LFTs: AST 27, ALT 26, alkaline phosphatase 62. Urinalysis is pending. CT of thoracic, lumbar, and cervical spine was done, which showed traumatic transverse fracture to T12, otherwise DJD. Brain CT, which showed no acute intracranial abnormality, but did show small vessel change. Chest x-ray with mild interstitial markings with no other acute cardiopulmonary process. EKG from 05/21/19 shows normal sinus rhythm with no acute ischemia. Imaging, labs, EKG reviewed by myself. ASSESSMENT AND PLAN: An 83-year-old female with past medical history of rheumatoid arthritis and fibromyalgia; chronic pain, on long-term opioid therapy ; hypertension; gastroesophageal reflux disease; anxiety and depression; recent admission for sedation secondary to polypharmacy, who is readmitted for acute low back pain, found to have a T12 fracture from presumed traumatic event/ mechanical fall at home. She will be admitted to the hospitalist service with neurosurgery consulting for pain control and possible rehabilitation needs. 1. Traumatic T12 fracture. Again, this is presumed trauma and possibly underlying osteoporosis/penia. She has no other lab abnormalities to determine if there is underlying oncologic process that led to this. The patient is a poor historian, unfortunately even on her emmonak language and did not give very a convincing mechanism for trauma, although it is possible she had mechanical fall or this event where she was falling out of bed could have prompted this acute fracture. She has 5/5 strength with no evidence of cord damage, though her mobility is greatly limited. Pain control with [id number] Tylenol, p.r.n. Toradol, cyclobenzaprine, and her home [place] up to b.i.d. will be continued. An MRI of the spine is requested by Neurosurgery, who have been consulted and is aware of the patient. 2. Fibromyalgia/chronic pain. The patient recently had medications down titrated. We will continue her recent home doses, which is Lyrica 150 mg p.o. q.p.m., 100 mg p.o. q.a.m., amitriptyline 50 mg q.h.s., and lidocaine patch. 3. Depression, anxiety/insomnia. The patient remains forgetful. We will hold zolpidem and offer melatonin and trazodone p.r.n. for sleep. Consider duloxetine or other SNRI if pain control is still an issue. 4. Rheumatoid arthritis. We are holding her control drugs. She is on folic acid. 5. Hypertension. HCTZ, amlodipine, losartan, her home medications at home doses are continued. 6. Hyperlipidemia. Pravastatin is continued. 7. DVT prophylaxis. Enoxaparin will be offered. 8. Disposition: Appropriate for observation status to [address] [place] [address]. PT and OT are ordered. The patient is on bedrest with Lowe placed secondary to her mobility status. 9. Code status is full and this was discussed with the patient's daughter. TIME SPENT: Sixty minutes was spent on the planning of this admission with over half of that spent directly at the bedside with the patient providing direct patient care. Plan of care is discussed with the patient and her daughter and they are agreeable to admission with observation with the understanding that MRI will be done and possible options for rehabilitation in the setting of a new T12 fracture. [id number]/[facility] #: [id number] JACQUELINE
[2019-05-25] MEDS ORDERED: Potassium Chlor TAB* 20 MEQ TAB.ER PO ONE (07:32)
--- NOTE | 2019-05-25 07:39 | PN ---
Subjective Date of Service: 05/25/19 Interval History: No overnight events. Lab: K 3.4 with normal creatinine, ? poor oral intake and thiazide use-> replace with one dose KCL noted CXR from yesterday, left lung base nodule/mass which was not seen in prev CXR. Lowe catheter day 2, smelly and cloudy urine noted, urine blood 1+, WBC 1+ . No complaint from the patient other than smelly urine. Objective Active Medications: Acetaminophen (Tylenol Tab*) 650 mg PO Q6HR [facility] Last Admin: 05/25/19 06:25 Dose: 650 mg Hydrocodone Bitart/Acetaminophen ([place] 5-325 Tab*) 1 tab PO BID PRN PRN Reason: PAIN - SEVERE Amitriptyline HCl (Elavil Tab*) 50 mg PO BEDTIME [facility] Amlodipine Besylate (Norvasc Tab*) 5 mg PO DAILY [facility] Cyanocobalamin (Vitamin B12 Tab*) 500 mcg PO DAILY [facility] Cyclobenzaprine HCl (Flexeril Tab*) 10 mg PO TID PRN PRN Reason: SPASMS - BACK Enoxaparin Sodium (Lovenox(*)) 40 mg SUBCUT BEDTIME [facility] Last Admin: 05/25/19 02:47 Dose: 40 mg Folic Acid (Folvite Tab*) 1 mg PO DAILY [facility] Hydrochlorothiazide (Hydrodiuril Tab*) 25 mg PO DAILY [facility] Ketorolac Tromethamine (Toradol Inj*) 30 mg IV PUSH Q6H PRN PRN Reason: PAIN - MODERATE Last Admin: 05/25/19 00:16 Dose: 30 mg Lidocaine (Lidoderm 5% Patch*) 1 patch TRANSDERM DAILY [facility] Losartan Potassium (Cozaar Tab*) 100 mg PO DAILY [facility] Melatonin (Melatonin) 3 mg PO BEDTIME [facility] Ondansetron HCl (Zofran Inj*) 4 mg IV Q6H PRN PRN Reason: NAUSEA Pharmacy Profile Note (Lidocaine Patch Remove*) 1 note PATCH OFF Q24H [facility] Potassium Chloride (Klor Con Er Tab*) 20 meq PO ONCE ONE Stop: 05/25/19 07:33 Pravastatin Sodium (Pravachol (Nf)) 20 mg PO DAILY [facility]; Protocol Pregabalin (Lyrica Cap(*)) 150 mg PO BEDTIME [facility] Pregabalin (Lyrica Cap(*)) 100 mg PO QAM [facility] Timolol Maleate (Timoptic Ophth.Soln 0.25%) 1 drop BOTH EYES DAILY [facility] Trazodone HCl (Desyrel Tab*) 50 mg PO BEDTIME PRN PRN Reason: INSOMNIA Vital Signs - 8 hr 05/24/19 05/24/19 05/25/19 23:48 23:51 00:00 Temperature Pulse Rate 78 78 80 Respiratory Rate Blood Pressure 148/61 (mmHg) O2 Sat by Pulse 96 96 94 Oximetry 05/25/19 05/25/19 05/25/19 01:43 01:52 05:57 Temperature 98.0 F 97.5 F 97.9 F Pulse Rate 70 78 75 Respiratory 18 18 18 Rate Blood Pressure 148/61 143/55 121/58 (mmHg) O2 Sat by Pulse 97 95 95 Oximetry Oxygen Devices in Use Now: None Exam: Lying on the bed, comfortable Heart: normal S1 S2, no murmur Lung: clear Abdomen: LLQ tenderness, no rebound tenderness, no rigidity. Extremities: no edema MSK: ROM full in all 4 limbs Skin: no skin lesion. Neurological: alert and oriented x 3 Result Diagrams: 05/24/19 23:26 05/24/19 23:26 Additional Lab and Data: Laboratory Tests 05/24/19 05/24/19 23:26 23:26 WBC 14.4 H RBC 4.37 Hgb 12.4 Hct 37 MCV 85 MCH 28 MCHC 33 RDW 15 Plt Count 180 MPV 9.3 Neut % (Auto) 67.5 Lymph % (Auto) 23.0 [place] % (Auto) 7.3 Eos % (Auto) 1.3 Baso % (Auto) 0.9 Absolute Neuts (auto) 9.7 H Absolute Lymphs (auto) 3.3 Absolute Monos (auto) 1.1 H Absolute Eos (auto) 0.2 Absolute Basos (auto) 0.1 Absolute Nucleated RBC 0.0 Nucleated RBC % 0.0 Sodium 141 Potassium 3.4 L Chloride 103 Carbon Dioxide 30 Anion Gap 8 BUN 14 Creatinine 0.39 L Est GFR ( Amer) 190.9 Est GFR (Non-Af Amer) 157.7 BUN/Creatinine Ratio 35.9 H Glucose 114 H Calcium 9.3 Total Bilirubin 0.50 AST 27 ALT 26 Alkaline Phosphatase 62 Total Protein 6.5 Albumin 3.9 Globulin 2.6 Albumin/Globulin Ratio 1.5 Assess/Plan/Problems-Billing Assessment: 83 y/o female with history of RA/fibromyalgia, assisted opioid use , HTN, depression, GERD; currently presented with acute lower back pain after a recent hospitalization for fall due to polypharmacy. She was found to have T12 fracture with no neurological deficit, will get MRI evaluation for her today. She had incidental finding of heart murmur for which we will do TTE this adm. She was also found to have pyuria, we started po augmentin tx empirically. - Patient Problems (1) Fracture, thoracic vertebra Current Visit: Yes Status: Acute Code(s): S22.009A - UNSP FRACTURE OF UNSP THORACIC VERTEBRA, INIT FOR CLOS FX SNOMED Code(s): 171368742 Comment: T12 fracture with no cord impairment consult ortho today etiology: pathological vs osteoprotic (2) UTI (urinary tract infection) Current Visit: No Status: Acute Comment: Pyuria on urinanalysis awaiting urine cs start on oral augmentin (3) Lung mass Current Visit: Yes Status: Acute Code(s): R91.8 - OTHER NONSPECIFIC ABNORMAL FINDING OF LUNG FIELD SNOMED Code(s): 053949638 Comment: incidental finding of hyperintensity in left basal lung ordered CT for further invx (4) Anxiety and depression Current Visit: No Status: Chronic Code(s): F41.9 - ANXIETY DISORDER, UNSPECIFIED; F32.9 - MAJOR DEPRESSIVE DISORDER, SINGLE EPISODE, UNSPECIFIED SNOMED Code(s): 712244586 Comment: Continue amitryptiline. (5) HTN (hypertension) Current Visit: No Status: Chronic Code(s): I10 - ESSENTIAL (PRIMARY) HYPERTENSION SNOMED Code(s): 96799443 Comment: Normotensive Continue amlodipine, losartan. (6) Rheumatoid arthritis Current Visit: No Status: Chronic Code(s): M06.9 - RHEUMATOID ARTHRITIS, UNSPECIFIED SNOMED Code(s): 47897082 Comment: Resume methotrexate upon discharge. Status and Disposition: Inpatient medicine. May need to explore placement after this fracture. Attestation Documenting Resident: Gladis Berg Supervising Physician: Eric Barton Attestation: This service has been performed in part by a resident under the direction of a teaching physician.I, Eric Barton, performed the service, or was physically present during the critical, or moran portions of the service, furnished by the resident. I participated in the management of the patient.
[2019-05-25] MEDS ORDERED: Timolol 0.25% OPHTH.SOLN* BTL BOTH EYES SCH (09:00)
[2019-05-25] MEDS: Hydrochlorothiazide TAB* 25 MG PO SCH (09:23)
[2019-05-25] MEDS: Folic Acid TAB* 1 MG PO SCH (09:23)
[2019-05-25] MEDS: Pregabalin CAP(*) 100 MG PO SCH (09:23)
[2019-05-25] MEDS: Cyanocobalamin TAB* 500 MCG PO SCH (09:23)
[2019-05-25] MEDS: amLODIPine TAB* 5 MG PO SCH (09:23)
[2019-05-25] MEDS: Losartan TAB* 25 MG PO SCH (09:23)
[2019-05-25] MEDS: CMCS:Pravastatin (NF) 20 MG TAB PO SCH (09:27)
--- NOTE | 2019-05-25 09:35 | PN ---
Progress Note - Progress Note Date of Service: 05/25/19 Note: Patient seen and examined. Full note dictated. Maintain spine precautions with HOB no more than 30 '. Please do not force flat bed rest, as patient has significant thoracic kyphosis. TLSO brace. MRI of lumbar spine to include T11. Amisha Moore MD
[2019-05-25] MEDS: Lidocaine PATCH 5%* 1 PATCH TRANSDERM SCH (10:19)
[2019-05-25] MEDS: Amoxicillin/Clavulanate TAB* 875 MG PO SCH ×2 (12:54→20:42)
--- NOTE | 2019-05-25 13:02 | CONS ---
CONSULTATION REPORT: DATE OF CONSULT: 05/25/19 HISTORY OF PRESENT ILLNESS: The patient is a very pleasant 83-year-old female with past medical history of rheumatoid arthritis and fibromyalgia, chronic pain , on long-term opioid therapy and polypharmacy, hypertension, GERD, anxiety, and depression with history of falls, who was recently admitted for sedation after polypharmacy, who presented to the emergency room last night for acute back pain. The patient was reported to be found by her daughter last night after she tried to get out of bed and go to the bathroom. It is unclear if she sustained a fall, but she was found to be fpc out of the bed when her daughter found her. Requested to see the patient by emergency room team because of CT scan findings consistent with a T12 transverse fracture. The patient was currently admitted by Internal Medicine. The patient is at telemetry floor. She was placed on bedrest overnight and was scheduled for an MRI of the thoracolumbar spine. The patient reports that she did not have an apparent fall. She did not lose the consciousness. She does not have have memory loss, although history is somewhat limited as the patient's primary language is Japanese and Jamaican. History was obtained from the patient, who speaks adequate Occitan and from the patient's chart. The patient denies any neck pain. She reports that she has back pain when she is moving or is trying to get out of bed. She reports that she has no weakness, numbness, or tingling of her extremities except chronic weakness in the lower extremities and chronic numbness in both feet. The patient denies any urinary or GI incontinence. She was found to be having the UTI and a catheter was placed. She reports that her pin sensation is intact. The patient reports that she was able to ambulate prior to these incidents independently. She lives at home with her . 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 PAST MEDICAL HISTORY: Rheumatoid arthritis, fibromyalgia, chronic low back pain , on long-term opioids, hypertension, GERD, anxiety, depression, history of falls. PAST SURGICAL HISTORY: Eye surgery. MEDICATIONS: The patient was on: 1. Vitamin D. 2. Diclofenac gel. 3. Dorzolamide. 4. Glucosamine/chondroitin. 5. Leucovorin. 6. Lidocaine. 7. Melatonin. 8. Methotrexate. 9. Pregabalin. 10. Triamcinolone. 11. PreserVision. 12. Zolpidem. 13. Tylenol. 14. Amitriptyline. 15. Amlodipine. 16. Cyanocobalamin. 17. Folic acid. 18. Hydrochlorothiazide. 19. Hydrocodone/acetaminophen 5/325. 20. Losartan. 21. Pravastatin. 22. Timolol. ALLERGIES: BETA-BLOCKERS, SEASONAL ALLERGIES. SOCIAL HISTORY: The patient lives in [facility] by herself. Her family including her , daughter, and granddaughter live in a house 2 blocks away. The patient denies any tobacco use, alcohol use, or recreational drug use. According to the patient's chart, she was ambulating independently prior to these incidents, although intermittently she was using a walker for long distance or new surroundings. PHYSICAL EXAMINATION: The patient is not in any acute distress. She is awake, alert, oriented x3. Her pupils are equal and reactive. Cranial nerves II through XII are grossly intact. Motor 4-5/5 in all extremities. Sensory is grossly intact to light touch, except decreased sensation in bilateral feet which is chronic to palpation. Deep tendon reflexes +1 bilaterally. No clonus. No Babinski. [place]'s negative. Straight leg raise test negative in the supine position. The patient has no tenderness to palpation of the cervical , thoracic, or lumbar spine. She has free range of motion of the cervical spine. It is painful though for her to move from side to side. STUDIES: The patient had a CT scan of the brain that did not reveal any acute intracranial abnormalities. The patient had a CT scan of the cervical spine that did not reveal any evidence of fracture or subluxation. The patient had a CT scan of the thoracic spine that revealed a T12 transverse fracture with intravertebral vacuum cleft without significant change in the overall alignment of the spine. The patient had a CT scan of the lumbar spine with evidence of degenerative disease and grade 1 spondylolisthesis at L4-5 with the above findings over the T12 vertebral body. ASSESSMENT: The patient is a very pleasant 83-year-old female with past medical history of rheumatoid arthritis, fibromyalgia, chronic pain, on chronic long-term opioid therapy, hypertension, gastroesophageal reflux disease, anxiety , depression, recent admission for sedation after polypharmacy, who was admitted with T12 fracture after a possible fall at home. PLAN: The patient at this point is doing quite well. She does have significant amount of pain, but neurologically she is at her baseline to the best of our ability to evaluate. Radiological appearance of T12 resembles a vertebral compression fracture with intravertebral vacuum cleft most likely related to osteoporosis. At this point, we would recommend an MRI of her lumbar spine to exclude injury of the posterior ligamentous complex and to evaluate the acuity of the fracture. We recommend a thoracolumbar brace and upright XR if the patient can tolerate that. The options of possible surgical intervention versus conservative treatment were discussed with the patient and we would be happy to reevaluate the patient after the MRI of her lumbar spine including the T10 vertebral body. As of now, the patient should be on spine precautions with head of bed no more than 30 degrees. Thank you for allowing us to participate in the care of this patient. Please do not hesitate to contact our office in case you have any further questions or concerns regarding the care of this patient. [id number]/[facility] #: [id number] JACQUELINE
--- NOTE | 2019-05-25 13:47 | ECHO ---
*[facility]* [place] [address] Fax #: [phone] Transthoracic Echocardiogram Patient: Gris Barahona : 1935 Study Date: 05/25/2019 Age: 83 Gender: F HR: 64 bpm Height: 62 in /157.5 cm BSA: 2.14 m^2 Weight: 219.5 lb /99.8 kg BMI: 40.2 kg/m^2 *Chimney Builder Helper: * Fabi Mendez RD *Referring Physician: * Fidelia Curtis *Reading Physician: * Jered Jackson MD Indications: Murmur. History: Rheumatoid arthritis,GERD,language barrier, anxiety-depression. Risk factors: Hypertension. Conclusions Summary: - Left ventricle: Systolic function is normal. The estimated ejection fraction is 55-60%. Wall motion is normal; there are no regional wall motion abnormalities. - Right ventricle: Systolic function is normal. - Mitral valve: There is trace regurgitation. - Aortic valve: The findings are consistent with mild to moderate stenosis. There is no significant regurgitation. - Tricuspid valve: There is trace to mild regurgitation. - Pericardium, extracardiac: There is no pericardial effusion. - Pulmonary arteries: Systolic pressure is within the normal range. - Study data: No prior study is available for comparison. Study data: Transthoracic echocardiogram. Procedure: Transthoracic echocardiography was performed. Image quality was fair. The study was technically limited due to body habitus. Complete 2D, spectral Doppler, and color flow Doppler. Patient status: Observation. Patient room number: 417-1. No prior study is available for comparison. Rhythm: Normal sinus rhythm. Findings Left ventricle: The cavity size is normal. Wall thickness is normal. Systolic function is normal. The estimated ejection fraction is 55-60%. Wall motion is normal; there are no regional wall motion abnormalities. Left ventricular diastolic function parameters are indeterminate. Right ventricle: Well visualized. The cavity size is normal. Wall thickness is normal. Systolic function is normal. Ventricular septum: Well visualized. Left atrium: Well visualized. The atrium is normal in size. Right atrium: Well visualized. The atrium is normal in size. Atrial septum: Well visualized. Mitral valve: Well visualized. The leaflets are mildly thickened. No echocardiographic evidence for prolapse. There is no evidence of stenosis. There is trace regurgitation. Aortic valve: Well visualized. The valve is trileaflet. The leaflets are moderately thickened. The findings are consistent with mild to moderate stenosis. There is no significant regurgitation. Tricuspid valve: Well visualized. The leaflets are normal thickness. There is no evidence of stenosis. There is trace to mild regurgitation. Pulmonic valve: Well visualized. The leaflets are normal thickness. There is no evidence of stenosis. There is no significant regurgitation. Aorta: The aorta is poorly visualized. The aortic arch appears normal. Pericardium: There is no pericardial effusion. No evidence of pleural fluid accumulation. Pulmonary arteries: Systolic pressure is within the normal range. Systemic veins: Not well visualized. Pulmonary veins: Visualization of the pulmonary venous anatomy is incomplete, but a significant abnormality is unlikely. Measurements Left ventricle Value Ref Right atrium continued Value Ref STEFFANIE, LAX 4.4 cm 3.8 - 5.2 SI dim, ES, A4C 4.4 cm 3.4 - 5.3 ESD, LAX 3.0 cm 2.2 - 3.5 SI dim/bsa, ES, 2.0 cm/m^2 1.9 - 3.1 FS, LAX 32 % 45 A4C PW, ED, LAX (H) 1.0 cm 0.6 - 0.9 FS 32 % 45 Aortic valve Value Ref Mid-wall FS 16 % --------- Peak v, S 2.47 m/sec --------- PW, ED (H) 1.0 cm 0.6 - 0.9 VTI, S 60.5 cm --------- PW/ID, ED 0.23 --------- Mean grad, S 14.9 mm Hg --------- E', lat janice, TDI (L) 4.9 cm/sec >=10.0 Peak grad, S 24.5 mm Hg - -------- E/e', lat janice, TDI 25 --------- LVOT/AV, VTI 0.55 ---- ----- ratio LVOT Value Ref CARLYLE, VTI 0.74 cm^2 --------- Diam, S 1.35 cm --------- CARLYLE, Vmax 0.71 cm^2 --------- Area 1.4 cm^2 --------- Peak mary, S 1.43 m/sec --------- Mitral valve Value Ref VTI, S 33.2 cm --------- Peak E 1.22 m/sec --------- Peak grad, S 8 mm Hg --------- Peak A 0.99 m/sec --------- Mean grad, S 4 mm Hg --------- Decel time 244 ms --------- Peak grad, D 6.0 mm Hg --------- Ventricular septum Value Ref Peak E/A ratio 1.24 --------- IVS, ED 0.7 cm 0.6 - 0.9 Pulmonic valve Value Ref Right ventricle Value Ref Peak v, S 0.86 m/sec --------- STEFFANIE, LAX 2.9 cm --------- Peak grad, S 3.0 mm Hg --------- STEFFANIE major ax, A4C (L) 2.6 cm 5.9 - 8.3 Tricuspid valve Value Ref Left atrium Value Ref TR peak v 2.61 m/sec <=2.8 LA ID 3.5 cm --------- Peak RV-RA grad, 27 mm Hg --------- SI dim ES, LAX 3.5 cm --------- S ML dim, A4C 3.6 cm --------- SI dim, A4C 5.4 cm --------- Aortic root Value Ref Vol, ES, 2-p 41 ml --------- Root diam 1.6 cm <4.2 Vol/bsa, ES, 2-p 19 ml/m^2 16 - 34 Ascending aorta Value Ref Right atrium Value Ref AAo AP diam, S 2.9 cm --------- SI dim, ES 4.4 cm 3.4 - 5.3 AAo AP diam/bsa, 1.4 cm/m^2 --------- ML dim, ES, A4C 3.2 cm 2.6 - 4.4 S Decending aorta Value Ref Pallavi peak mary 0.42 m/sec --------- Legend: (L) and (H) philipp values outside specified reference range. Prepared and electronically signed by Jered Jackson MD 05/25/2019 13:46
[2019-05-25] MEDS ORDERED: Iodixanol* (CONTRAST) 320 MG/ML 100 ML SDV IV ONE ×2 (17:36→19:56)
[2019-05-25] MEDS: Amitriptyline TAB* 50 MG PO SCH (20:43)
[2019-05-25] MEDS: Pregabalin CAP(*) 50 MG PO SCH (20:43)
[2019-05-25] MEDS: Lidocaine Patch REMOVE* 1 NOTE MISC PATCH OFF SCH (20:49)
[2019-05-25] MEDS ORDERED: Melatonin 3 MG TAB PO SCH (21:00)
[2019-05-25] MEDS: Timolol 0.25% OPHTH.SOLN* BTL BOTH EYES SCH (23:54)
[2019-05-26] MEDS: Timolol 0.25% OPHTH.SOLN* BTL BOTH EYES SCH ×3 (00:56→21:25)
[2019-05-26] MEDS: Acetaminophen TAB* 325 MG PO SCH ×5 (01:45→23:09)
[2019-05-26 05:49] LABS: ABS Basophils 0.1 10^3/ul (0-0.2); ABS Eosinophils 0.6 10^3/ul (0-0.6); ABS Lymphocytes 3.3 10^3/ul (1.0-4.8); ABS Monocytes 0.6 10^3/ul (0-0.8); ABS Neutrophils 6.1 10^3/ul (1.5-7.7); Eosinophil % 5.6 %; Hematocrit 38 % (35-47); Hemoglobin 12.9 g/dL (12.0-16.0); Lymphocyte % 30.8 %; Mean Corpuscular HGB Conc 34 g/dL (31-36); Mean Corpuscular Hemoglobin 29 pg (27-31); Mean Corpuscular Volume 86 fL (80-97); Mean Platelet Volume 9.7 fL (7.4-10.4); Platelet Count 174 10^3/uL (150-450); Red Blood Count 4.45 10^6 /uL (3.70-4.87); Red Cell Distribution Width 15 % (10-15); White Blood Count 10.8 10^3/uL (3.5-10.8)
[2019-05-26 06:08] LABS: BUN/Creatinine Ratio 35.7 (8-20); Calcium 8.6 mg/dL (8.6-10.3); EGFR African American 175.2 (>60); EGFR Non-African American 144.8 (>60); Magnesium 1.9 mg/dL (1.9-2.7); Potassium 3.1 mmol/L (3.5-5.0)
--- NOTE | 2019-05-26 09:19 | PN ---
Progress Note - Progress Note Date of Service: 05/26/19 SOAP: Subjective: [] Objective: [] Assessment: [] Plan: []
[2019-05-26] MEDS: Losartan TAB* 25 MG PO SCH (09:21)
[2019-05-26] MEDS: Hydrochlorothiazide TAB* 25 MG PO SCH (09:22)
[2019-05-26] MEDS: CMCS:Pravastatin (NF) 20 MG TAB PO SCH (09:22)
[2019-05-26] MEDS: Pregabalin CAP(*) 100 MG PO SCH (09:22)
[2019-05-26] MEDS: Folic Acid TAB* 1 MG PO SCH (09:22)
[2019-05-26] MEDS: Amoxicillin/Clavulanate TAB* 875 MG PO SCH (09:22)
[2019-05-26] MEDS: Cyanocobalamin TAB* 500 MCG PO SCH (09:23)
[2019-05-26] MEDS: Lidocaine PATCH 5%* 1 PATCH TRANSDERM SCH (09:23)
[2019-05-26] MEDS: amLODIPine TAB* 5 MG PO SCH (09:23)
--- NOTE | 2019-05-26 09:31 | PN ---
Progress Note - Progress Note Date of Service: 05/26/19 Note: 83 y/o female with T12 compression fracture has completed MRI that demonstrates stable compression fracture without damage to ligaments. Dr Moore was at bedside this morning and spoke with patient about treatment options conservative vs. surgical intervention. Patient's preference is for conservative therapy with bracing. Neurosurgery team will be happy to speak with patient's family to discuss treatment options. the following is recommended at this time: 1) Have patient fitted for TLSO brace, if unable to tolerate consider Jeweitt brace. 2) Once fitted in brace complete up right AP lateral films lumbar spine include up T10, with patient wearing brace. 3) If patient is able tolerate standing in brace she clear from neurosurgery perspective. 4) Will have patient follow up in neurosurgery clinic in 2 weeks with new x rays. 5) Have patient follow up with PCP for management of osteoporosis. []
--- NOTE | 2019-05-26 10:34 | PN ---
Subjective Date of Service: 05/26/19 Interval History: CT chest: no nodules seen, mild bibasal pleural effusion Labs: K 3.1 despite KCL tab yesterday urine cs neg Noted Ortho input with thanks Plan: - Do TLSO brace fitting first, if not fit, consider Jewitt brace - KCL tab regular - allow ambulation with brace - PT/OT - off abx - off waterman - right AP lateral lumbar spine include up to T10 on discharge - see Neurosurgery Dr. Moore clinic in 2weeks with XR - see pcp early date for osteoprosis check Objective Active Medications: Acetaminophen (Tylenol Tab*) 650 mg PO Q6HR [facility] Last Admin: 05/26/19 05:30 Dose: 650 mg Hydrocodone Bitart/Acetaminophen (Baudette 5-325 Tab*) 1 tab PO BID PRN PRN Reason: PAIN - SEVERE Amitriptyline HCl (Elavil Tab*) 50 mg PO BEDTIME [facility] Last Admin: 05/25/19 20:43 Dose: 50 mg Amlodipine Besylate (Norvasc Tab*) 5 mg PO DAILY [facility] Last Admin: 05/26/19 09:23 Dose: 5 mg Cyanocobalamin (Vitamin B12 Tab*) 500 mcg PO DAILY [facility] Last Admin: 05/26/19 09:23 Dose: 500 mcg Cyclobenzaprine HCl (Flexeril Tab*) 10 mg PO TID PRN PRN Reason: SPASMS - BACK Enoxaparin Sodium (Lovenox(*)) 40 mg SUBCUT BEDTIME [facility] Last Admin: 05/25/19 20:52 Dose: 40 mg Folic Acid (Folvite Tab*) 1 mg PO DAILY [facility] Last Admin: 05/26/19 09:22 Dose: 1 mg Hydrochlorothiazide (Hydrodiuril Tab*) 25 mg PO DAILY [facility] Last Admin: 05/26/19 09:22 Dose: 25 mg Ketorolac Tromethamine (Toradol Inj*) 30 mg IV PUSH Q6H PRN PRN Reason: PAIN - MODERATE Last Admin: 05/25/19 00:16 Dose: 30 mg Lidocaine (Lidoderm 5% Patch*) 1 patch TRANSDERM DAILY [facility] Last Admin: 05/26/19 09:23 Dose: 1 patch Losartan Potassium (Cozaar Tab*) 100 mg PO DAILY [facility] Last Admin: 05/26/19 09:21 Dose: 100 mg Melatonin (Melatonin) 3 mg PO BEDTIME [facility] Last Admin: 05/25/19 20:43 Dose: 3 mg Ondansetron HCl (Zofran Inj*) 4 mg IV Q6H PRN PRN Reason: NAUSEA Pharmacy Profile Note (Lidocaine Patch Remove*) 1 note PATCH OFF Q24H [facility] Last Admin: 05/25/19 20:49 Dose: Not Given Potassium Chloride (Klor Con Er Tab*) 20 meq PO BID [facility] Pravastatin Sodium (Pravachol (Nf)) 20 mg PO DAILY [facility]; Protocol Last Admin: 05/26/19 09:22 Dose: 20 mg Pregabalin (Lyrica Cap(*)) 150 mg PO BEDTIME [facility] Last Admin: 05/25/19 20:43 Dose: 150 mg Pregabalin (Lyrica Cap(*)) 100 mg PO QAM [facility] Last Admin: 05/26/19 09:22 Dose: 100 mg Timolol Maleate (Timoptic Ophth.Soln 0.25%) 1 drop BOTH EYES BID [facility] Last Admin: 05/26/19 09:21 Dose: 1 drop Trazodone HCl (Desyrel Tab*) 50 mg PO BEDTIME PRN PRN Reason: INSOMNIA Vital Signs - 8 hr 05/26/19 05/26/19 05/26/19 02:45 03:15 05:35 Temperature 97.4 F Pulse Rate 77 Respiratory 18 16 18 Rate Blood Pressure 135/58 (mmHg) O2 Sat by Pulse 93 Oximetry 05/26/19 05/26/19 05/26/19 06:43 08:00 09:22 Temperature 98 F Pulse Rate 74 Respiratory 16 16 16 Rate Blood Pressure 140/59 (mmHg) O2 Sat by Pulse 93 Oximetry Oxygen Devices in Use Now: None Exam: Well, lying on bed comfortably Heart: normal rhythm, no murmur Lung: clear AbdomenL: soft tenderness Back: localized tenderness between shoulder blades Result Diagrams: 05/26/19 05:31 05/26/19 05:31 Additional Lab and Data: Laboratory Tests 05/24/19 05/24/19 23:26 23:26 WBC 14.4 H RBC 4.37 Hgb 12.4 Hct 37 MCV 85 MCH 28 MCHC 33 RDW 15 Plt Count 180 MPV 9.3 Neut % (Auto) 67.5 Lymph % (Auto) 23.0 [place] % (Auto) 7.3 Eos % (Auto) 1.3 Baso % (Auto) 0.9 Absolute Neuts (auto) 9.7 H Absolute Lymphs (auto) 3.3 Absolute Monos (auto) 1.1 H Absolute Eos (auto) 0.2 Absolute Basos (auto) 0.1 Absolute Nucleated RBC 0.0 Nucleated RBC % 0.0 Sodium 141 Potassium 3.4 L Chloride 103 Carbon Dioxide 30 Anion Gap 8 BUN 14 Creatinine 0.39 L Est GFR ( Amer) 190.9 Est GFR (Non-Af Amer) 157.7 BUN/Creatinine Ratio 35.9 H Glucose 114 H Calcium 9.3 Total Bilirubin 0.50 AST 27 ALT 26 Alkaline Phosphatase 62 Total Protein 6.5 Albumin 3.9 Globulin 2.6 Albumin/Globulin Ratio 1.5 Assess/Plan/Problems-Billing Assessment: 83 y/o female with history of RA/fibromyalgia, longterm opioid use , HTN, depression, GERD; currently presented with acute lower back pain after a recent hospitalization for fall due to polypharmacy. She was found to have T12 fracture with no neurological deficit, which is currently conservatively managed. - Patient Problems (1) Fracture, thoracic vertebra Current Visit: Yes Status: Acute Code(s): S22.009A - UNSP FRACTURE OF UNSP THORACIC VERTEBRA, INIT FOR CLOS FX SNOMED Code(s): 681181648 Comment: T12 fracture with no cord impairment put on TLSO brace etiology: osteoprotic likely Last vit d check months ago 26.4 (2) Anxiety and depression Current Visit: No Status: Chronic Code(s): F41.9 - ANXIETY DISORDER, UNSPECIFIED; F32.9 - MAJOR DEPRESSIVE DISORDER, SINGLE EPISODE, UNSPECIFIED SNOMED Code(s): 522704816 Comment: Continue amitryptiline. (3) HTN (hypertension) Current Visit: No Status: Chronic Code(s): I10 - ESSENTIAL (PRIMARY) HYPERTENSION SNOMED Code(s): 76248584 Comment: Normotensive Continue amlodipine, losartan. (4) Rheumatoid arthritis Current Visit: No Status: Chronic Code(s): M06.9 - RHEUMATOID ARTHRITIS, UNSPECIFIED SNOMED Code(s): 34552225 Comment: Resume methotrexate upon discharge. Status and Disposition: Inpatient medicine. Discharge to [facility] [place] tomorrow. Attestation Documenting Resident: Gladis Berg Supervising Physician: Eric Barton Attestation: This service has been performed in part by a resident under the direction of a teaching physician.I, Eric Barton, performed the service, or was physically present during the critical, or moran portions of the service, furnished by the resident. I participated in the management of the patient.
[2019-05-26] MEDS: Potassium Chlor TAB* 20 MEQ TAB.ER PO SCH ×2 (13:33→21:17)
[2019-05-26] MEDS: Amitriptyline TAB* 50 MG PO SCH (21:17)
[2019-05-26] MEDS: Enoxaparin(*) 40 MG/0.4 ML SYR SUBCUT SCH (21:20)
[2019-05-26] MEDS: Lidocaine Patch REMOVE* 1 NOTE MISC PATCH OFF SCH (21:20)
[2019-05-26] MEDS: Pregabalin CAP(*) 50 MG PO SCH (21:32)
[2019-05-27 06:12] LABS: BUN/Creatinine Ratio 33.3 (8-20); Calcium 9.4 mg/dL (8.6-10.3); EGFR African American 161.8 (>60); EGFR Non-African American 133.7 (>60); Potassium 3.9 mmol/L (3.5-5.0)
[2019-05-27] MEDS: Acetaminophen TAB* 325 MG PO SCH ×3 (06:30→15:58)
[2019-05-27 06:46] LABS: Vitamin D Total 25(OH) 18.2 ng/mL (20-50)
--- NOTE | 2019-05-27 08:32 | PN ---
Subjective Date of Service: 05/27/19 Interval History: Labs: vitD<20 considering her fracture, age, she should start osteoporosis treatment. Need discussion with family and endocrine followup. plan: -start vitd2 50,000U for 8 weeks, then convert to cholecalciferol F/U PCP follow up for BMD and osteoprosis Endocrine follow up for bisphosphonate injection. Objective Active Medications: Acetaminophen (Tylenol Tab*) 650 mg PO Q6HR [facility] Last Admin: 05/27/19 06:30 Dose: Not Given Hydrocodone Bitart/Acetaminophen (Otto 5-325 Tab*) 1 tab PO BID PRN PRN Reason: PAIN - SEVERE Amitriptyline HCl (Elavil Tab*) 50 mg PO BEDTIME [facility] Last Admin: 05/26/19 21:17 Dose: 50 mg Amlodipine Besylate (Norvasc Tab*) 5 mg PO DAILY [facility] Last Admin: 05/26/19 09:23 Dose: 5 mg Cyanocobalamin (Vitamin B12 Tab*) 500 mcg PO DAILY [facility] Last Admin: 05/26/19 09:23 Dose: 500 mcg Cyclobenzaprine HCl (Flexeril Tab*) 10 mg PO TID PRN PRN Reason: SPASMS - BACK Enoxaparin Sodium (Lovenox(*)) 40 mg SUBCUT BEDTIME [facility] Last Admin: 05/26/19 21:20 Dose: 40 mg Ergocalciferol (Drisdol Cap*) 50,000 unit PO Q7D [facility] Folic Acid (Folvite Tab*) 1 mg PO DAILY [facility] Last Admin: 05/26/19 09:22 Dose: 1 mg Hydrochlorothiazide (Hydrodiuril Tab*) 25 mg PO DAILY [facility] Last Admin: 05/26/19 09:22 Dose: 25 mg Lidocaine (Lidoderm 5% Patch*) 1 patch TRANSDERM DAILY [facility] Last Admin: 05/26/19 09:23 Dose: 1 patch Losartan Potassium (Cozaar Tab*) 100 mg PO DAILY [facility] Last Admin: 05/26/19 09:21 Dose: 100 mg Pharmacy Profile Note (Lidocaine Patch Remove*) 1 note PATCH OFF Q24H [facility] Last Admin: 05/26/19 21:20 Dose: Not Given Pravastatin Sodium (Pravachol (Nf)) 20 mg PO DAILY [facility]; Protocol Last Admin: 05/26/19 09:22 Dose: 20 mg Pregabalin (Lyrica Cap(*)) 150 mg PO BEDTIME [facility] Last Admin: 05/26/19 21:32 Dose: 150 mg Pregabalin (Lyrica Cap(*)) 100 mg PO QAM [facility] Last Admin: 05/26/19 09:22 Dose: 100 mg Timolol Maleate (Timoptic Ophth.Soln 0.25%) 1 drop BOTH EYES BID [facility] Last Admin: 05/26/19 21:25 Dose: 1 drop Trazodone HCl (Desyrel Tab*) 50 mg PO BEDTIME PRN PRN Reason: INSOMNIA Vital Signs - 8 hr 05/27/19 03:05 Temperature 98.3 F Pulse Rate 85 Respiratory 18 Rate Blood Pressure 143/61 (mmHg) O2 Sat by Pulse 95 Oximetry Oxygen Devices in Use Now: None Result Diagrams: 05/26/19 05:31 05/27/19 05:22 Additional Lab and Data: Laboratory Tests 05/24/19 05/24/19 23:26 23:26 WBC 14.4 H RBC 4.37 Hgb 12.4 Hct 37 MCV 85 MCH 28 MCHC 33 RDW 15 Plt Count 180 MPV 9.3 Neut % (Auto) 67.5 Lymph % (Auto) 23.0 [place] % (Auto) 7.3 Eos % (Auto) 1.3 Baso % (Auto) 0.9 Absolute Neuts (auto) 9.7 H Absolute Lymphs (auto) 3.3 Absolute Monos (auto) 1.1 H Absolute Eos (auto) 0.2 Absolute Basos (auto) 0.1 Absolute Nucleated RBC 0.0 Nucleated RBC % 0.0 Sodium 141 Potassium 3.4 L Chloride 103 Carbon Dioxide 30 Anion Gap 8 BUN 14 Creatinine 0.39 L Est GFR ( Amer) 190.9 Est GFR (Non-Af Amer) 157.7 BUN/Creatinine Ratio 35.9 H Glucose 114 H Calcium 9.3 Total Bilirubin 0.50 AST 27 ALT 26 Alkaline Phosphatase 62 Total Protein 6.5 Albumin 3.9 Globulin 2.6 Albumin/Globulin Ratio 1.5 Assess/Plan/Problems-Billing Assessment: 83 y/o female with history of RA/fibromyalgia, nursing home opioid use , HTN, depression, GERD; currently presented with acute lower back pain after a recent hospitalization for fall due to polypharmacy. She was found to have T12 fracture with no neurological deficit, which is currently conservatively managed. - Patient Problems (1) Fracture, thoracic vertebra Current Visit: Yes Status: Acute Code(s): S22.009A - UNSP FRACTURE OF UNSP THORACIC VERTEBRA, INIT FOR CLOS FX SNOMED Code(s): 615927044 Comment: T12 fracture with no cord impairment put on TLSO brace etiology: osteoprotic likely Last vit d check months ago 26.4 (2) Anxiety and depression Current Visit: No Status: Chronic Code(s): F41.9 - ANXIETY DISORDER, UNSPECIFIED; F32.9 - MAJOR DEPRESSIVE DISORDER, SINGLE EPISODE, UNSPECIFIED SNOMED Code(s): 451870442 Comment: Continue amitryptiline. (3) HTN (hypertension) Current Visit: No Status: Chronic Code(s): I10 - ESSENTIAL (PRIMARY) HYPERTENSION SNOMED Code(s): 39961412 Comment: Normotensive Continue amlodipine, losartan. (4) Rheumatoid arthritis Current Visit: No Status: Chronic Code(s): M06.9 - RHEUMATOID ARTHRITIS, UNSPECIFIED SNOMED Code(s): 39756161 Comment: Resume methotrexate upon discharge. Status and Disposition: Inpatient medicine. Discharge to [facility] tomorrow.
--- NOTE | 2019-05-27 08:41 | PN ---
Progress Note - Progress Note Date of Service: 05/27/19 Note: Seen patient this morning , she is still pending brace. Once she has been fitted will follow up standing X rays of the lumbar spine include up T10. If patient able to stand and tolerate brace will follow up as out patient. If she can not tolerate brace will consider possible surgical intervention.
[2019-05-27] MEDS ORDERED: Ergocalciferol CAP* 50000 UNIT PO SCH (09:00)
[2019-05-27] MEDS: CMCS:Pravastatin (NF) 20 MG TAB PO SCH (10:38)
[2019-05-27] MEDS: Cyanocobalamin TAB* 500 MCG PO SCH (10:38)
[2019-05-27] MEDS: amLODIPine TAB* 5 MG PO SCH (10:38)
[2019-05-27] MEDS: Pregabalin CAP(*) 100 MG PO SCH (10:38)
[2019-05-27] MEDS: Losartan TAB* 25 MG PO SCH (10:38)
[2019-05-27] MEDS: Timolol 0.25% OPHTH.SOLN* BTL BOTH EYES SCH (10:47)
[2019-05-27] MEDS: Hydrochlorothiazide TAB* 25 MG PO SCH (10:47)
[2019-05-27] MEDS: Folic Acid TAB* 1 MG PO SCH (10:47)
[2019-05-27] MEDS: Lidocaine PATCH 5%* 1 PATCH TRANSDERM SCH (10:55)
[2019-05-27 13:54] VITALS: BP 135/63
[2019-05-28] MEDS ORDERED: ALENDRONATE 10 MG PO SCH (07:30)
--- NOTE | 2019-05-28 11:59 | DS ---
DISCHARGE SUMMARY: DATE OF ADMISSION: 05/25/19 DATE OF DISCHARGE: 05/27/19 PRIMARY DIAGNOSIS: Acute T12 compression fracture. SECONDARY DIAGNOSES: 1. Osteoporosis. 2. Aortic stenosis. 3. Hypertension. 4. Rheumatoid arthritis. 5. Chronic low back pain, on long-term opiate therapy. 6. Gastroesophageal reflux disease. 7. Depression. 8. Anxiety. 9. Insomnia. 10. Glaucoma. 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 12. Hyperlipidemia. MEDICATIONS ON DISCHARGE: 1. Amlodipine 5 mg p.o. q. day. 2. Diclofenac gel topically. 3. Dorzolamide 2% ophthalmic 1 drop both eyes daily. 4. Folic acid 1 mg p.o. q. day. 5. Multivitamin 1 tab p.o. q. day. 6. Hydrochlorothiazide 25 mg p.o. q. day. 7. Hydrocodone/acetaminophen 5/325 one tab p.o. b.i.d. 8. Methotrexate 50 mg p.o. weekly 9. Leucovorin 5 mg p.o. weekly. 10. Lidocaine patch topically daily as needed. 11. Losartan 100 mg p.o. q. day. 12. Melatonin 5 mg p.o. q.h.s. 13. Pravastatin 20 mg p.o. q.p.m. 14. Lyrica 100 mg p.o. q.a.m. and 150 mg q.p.m. 15. Timolol 0.25% ophthalmic solution 1 drop both eyes daily. 16. Triamcinolone cream as needed. 17. Acetaminophen as needed. 18. Alendronate 70 mg p.o. q. week. 19. Amitriptyline 50 mg p.o. at bedtime. 20. Cholecalciferol 2000 units p.o. q. day. 21. Vitamin B12 500 mg p.o. q. day. 22. Zolpidem 5 mg p.o. q.h.s. p.r.n. CONSULTATIONS: Dr. Moore from Neurosurgery. HOSPITAL COURSE: The patient is an 83-year-old woman who speaks mainly Tristanian and Lao, who de veloped a T12 fracture. She denied a fall, but says she has severe back spasm. The CT of the brain was normal. CT of the cervical spine did not reveal any fracture subluxation. CT of the thoracic sp ine showed a T12 transverse fracture with intravertebral vacuum cleft. CT of the lumbar spine showed grade 1 spondylolisthesis at L4-L5. The patient was admitted for observation and further evaluation per Dr. Moore. The patient had MRI of the lumbar spine on 05/25/19 that showed an acute compre ssion fracture at T12 causing a 10% vertebral body loss. There is mild bony retropulsion, but no sig nificant spinal cord stenosis. There was a concern on chest x-ray on admission of a left lower quadr ant density. Chest CT showed a very small pleural effusion and bibasilar atelectasis, but no masses. The patient was seen by physical therapy and was able to ambulate. She was fitted for a brace, spe cifically a TLSO brace. This had to be adjusted, but she eventually was able to be independent with walking and transferring. Repeat x-ray was taken while wearing the brace on 05/27/19 and this showed a satisfactory alignment. LABORATORY TEST DURING THE HOSPITAL STAY: White count was 14.4 on admission and down to 10.8 on disc harge. The initial potassium was 3.4 and was 3.9 on discharge. Her 25-hydroxy vitamin D level was 18 .2. Urinalysis showed 1+ blood, 1+ white cells, 2+ red cells, but urine culture with no growth. The patient was independent and ambulatory with her brace and pain control was adequate. DISPOSITION: To home. ACTIVITY: As tolerated wearing brace when upright. STATUS: Inpatient. CONDITION: Stable. DIET: Low salt, regular diet. FOLLOWUP: Dr. Reyes for primary care within [address] Moore within 1 month. [id number]/[facility] #: [id number]
== END 2019-05-27 16:00 | disposition home health service (06) | DRG 543 ==
LOC: ED 20:41 → MED 23:44 → OBSVTOIN 05-25 11:32
PROVIDERS: ADMIT Internal Medicine; ATTEND Internal Medicine
DX: M48.54XA Collapsed vertebra, not elsewhere classified, thoracic region, initial encounter for fracture (principal); N39.0 Urinary tract infection, site not specified; J90 Pleural effusion, not elsewhere classified; J30.2 Other seasonal allergic rhinitis; E11.9 Type 2 diabetes mellitus without complications; K21.9 Gastro-esophageal reflux disease without esophagitis; M19.90 Unspecified osteoarthritis, unspecified site; M06.9 Rheumatoid arthritis, unspecified; F41.9 Anxiety disorder, unspecified; F32.9 Major depressive disorder, single episode, unspecified; Z96.1 Presence of intraocular lens; M79.7 Fibromyalgia; M43.14 Spondylolisthesis, thoracic region; G89.29 Other chronic pain; E78.5 Hyperlipidemia, unspecified; G47.00 Insomnia, unspecified; M81.0 Age-related osteoporosis without current pathological fracture; M47.814 Spondylosis without myelopathy or radiculopathy, thoracic region; M40.294 Other kyphosis, thoracic region; H40.9 Unspecified glaucoma; H35.3190 Nonexudative age-related macular degeneration, unspecified eye, stage unspecified; E66.3 Overweight; I35.0 Nonrheumatic aortic (valve) stenosis; N20.0 Calculus of kidney; Z91.81 History of falling; Z88.8 Allergy status to other drugs, medicaments and biological substances; Z87.442 Personal history of urinary calculi; Z85.828 Personal history of other malignant neoplasm of skin; Z98.42 Cataract extraction status, left eye; Z98.41 Cataract extraction status, right eye; Z82.49 Family history of ischemic heart disease and other diseases of the circulatory system; Z83.3 Family history of diabetes mellitus; Z68.32 Body mass index [BMI] 32.0-32.9, adult
CPT/HCPCS: 36415; 70450; 70496; 70498; 70551; 71045; 71260; 72100; 72125; 72128; 72131; 72148; 80048; 80053; 80061; 81003; 81015; 82140; 82306; 82607; 82803; 83605; 83735; 84443; 84484; 85025; 85610; 85730; 86140; 87040; 87086; 93005; 93306; 96365; 96366; 96372; 96375; 99283; 99285; A9270-GY; G0378; G8978-GP-CK; G8979-GP-CI; G8987-GO-CK; G8988-GO-CI; J1644; J1650; J1885; J2270; J3480; Q9967

== ENCOUNTER 2019-06-07 21:23 | Emergency (ER) | payer MEDICARE, MEDICAID ==
[2019-06-07] MEDS ORDERED: Sodium Phosphate ADULT ENEMA* 118 ml bottle PR ONE (23:52)
[2019-06-07] MEDS ORDERED: Sodium Phosphate ADULT ENEMA* 118 ml bottle ONE (23:52)
[2019-06-08 00:05] LABS: ABS Basophils 0.1 10^3/ul (0-0.2); ABS Eosinophils 0.3 10^3/ul (0-0.6); ABS Lymphocytes 3.3 10^3/ul (1.0-4.8); ABS Monocytes 0.8 10^3/ul (0-0.8); ABS Neutrophils 8.6 10^3/ul (1.5-7.7); Hematocrit 41 % (35-47); Hemoglobin 13.7 g/dL (12.0-16.0); Lymphocyte % 25.3 %; Mean Corpuscular HGB Conc 33 g/dL (31-36); Mean Corpuscular Hemoglobin 29 pg (27-31); Mean Corpuscular Volume 86 fL (80-97); Mean Platelet Volume 9.3 fL (7.4-10.4); Platelet Count 257 10^3/uL (150-450); Red Blood Count 4.79 10^6 /uL (3.70-4.87); Red Cell Distribution Width 15 % (10-15); White Blood Count 13.1 10^3/uL (3.5-10.8)
[2019-06-08 00:22] LABS: Albumin 4.2 g/dL (3.2-5.2); Albumin/Globulin Ratio 1.5 (1-3); BUN/Creatinine Ratio 43.8 (8-20); C Reactive Protein 10.99 mg/L (<8.01); Calcium 9.6 mg/dL (8.6-10.3); EGFR African American 150.2 (>60); EGFR Non-African American 124.1 (>60); Globulin 2.8 g/dL (2-4); Potassium 4.2 mmol/L (3.5-5.0); Total Bilirubin 0.3 mg/dL (0.2-1.0)
[2019-06-08] MEDS ORDERED: PEG 3000 GI LAVAGE* 1 GALLON PO ONE (00:28)
[2019-06-08 00:59] VITALS: BP 143/76
--- NOTE | 2019-06-08 02:45 | ED ---
Complex/Multi-Sys Presentation - HPI Summary HPI Summary: Patient is a 83 y/o F presenting to [facility] with complaints of abdominal pain and constipation. She had been evaluated in [facility] on 05/25/19 for back pain and was found to have a spinal fracture. She was admitted to [facility] and was discharged on . Patient was placed on pain medications. She reports that she has not had a bowel movement in the past six days and notes that she has been having abdominal pain as well. On triage, pain is rated 8/10, nothing is noted to aggravate/alleviate Sx. Home medications and allergies are reviewed. - History Of Current Complaint Chief Complaint: EDConstipation Time Seen by Provider: 06/07/19 23:32 Hx Obtained From: Patient Onset/Duration: Lasting Days - six, Still Present Timing: Constant, Days Severity Currently: Moderate Location: Pain At: - abdomen Aggravating Factor(s): nothing Alleviating Factor(s): nothing Associated Signs And Symptoms: Positive: Abdominal Pain, Back Pain, Other - positive - constipation - Allergies/Home Medications Allergies/Adverse Reactions: Allergies Allergy/AdvReac Type Severity Reaction Status Date / Time Beta-Blockers Allergy Coughing Verified 11/26/18 12:33 (Beta-Adrenergic Bloc seasonal Allergy Eyes Uncoded 11/26/18 12:33 Itchy/Swollen/Red/Watery PMH/Surg Hx/FS Hx/Imm Hx Endocrine/Hematology History: Reports: Hx Diabetes Cardiovascular History: Reports: Hx Hypertension Denies: Hx Pacemaker/ICD GI History: Reports: Hx Gastroesophageal Reflux Disease - CONTROL WITH MEDICATION History: Reports: Hx Kidney Stones - long time ago - passed Denies: Hx Renal Disease Musculoskeletal History: Reports: Hx Arthritis - RHEUMATOID ARTHRITIS, Other Musculoskeletal History - right wrist carpal tunnel syndrome Denies: Hx Osteoporosis Sensory History: Reports: Hx Contacts or Glasses - Not present at bedside Denies: Hx Cataracts, Hx Hearing Aid Opthamlomology History: Reports: Hx Contacts or Glasses - Not present at bedside Denies: Hx Cataracts Psychiatric History: Reports: Hx Anxiety - HX OF, Hx Depression - HX OF Denies: Hx Panic Disorder - Cancer History Cancer Type, 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 appenectomy. deviated septum repair. bilateral temporal skin bx. right wrist carpal tunnel Hx Anesthesia Reactions: No Infectious Disease History: No Infectious Disease History: Denies: Hx of Known/Suspected MRSA, Traveled Outside the [place] in Last 30 Days - Family History Known Family History: Positive: Cardiac Disease Negative: Hypertension, Diabetes - Social History Alcohol Use: None Hx Substance Use: No Substance Use Type: Reports: None Hx Tobacco Use: No Smoking Status (MU): Never Smoked Tobacco Review of Systems Positive: Abdominal Pain Genitourinary: Other - positive - constipation All Other Systems Reviewed And Are Negative: Yes Physical Exam - Summary Physical Exam Summary: Appearance: Well-appearing, Well-nourished, lying in bed comfortably Skin: Warm, dry, no obvious rash Eyes: sclera anicteric, no conjunctival pallor ENT: mucous membranes moist, pharynx appears normal Neck: Supple, nontender Respiratory: Clear to auscultation, no signs of respiratory distress Cardiovascular: Normal S1, S2. No murmurs. Normal distal pulses in tibial and radial bilaterally. Abdomen: Soft, nontender, normal active bowel sounds present Rectum: Somewhat hard stool on rectal wall, but no definite fecal impaction. Musculoskeletal: Normal, Strength/ROM Intact Neurological: A&Ox3, awake and alert, mentation is normal, speech is fluent and appropriate Psychiatric: affect is normal, does not appear anxious or depressed Triage Information Reviewed: Yes Vital Signs On Initial Exam: Initial Vitals Temp Pulse Resp BP Pulse Ox 97.1 F 95 18 156/83 95 06/07/19 21:26 06/07/19 21:26 06/07/19 21:26 06/07/19 21:26 06/07/19 21:26 Vital Signs Reviewed: Yes Diagnostics - Vital Signs Vital Signs Temp Pulse Resp BP Pulse Ox 06/08/19 00:58 98 F 88 18 143/76 97 06/07/19 23:39 98 F 90 154/65 97 06/07/19 21:26 97.1 F 95 18 156/83 95 - Laboratory Lab Results: Lab Results 06/07/19 06/07/19 Range/Units 23:59 23:59 WBC 13.1 H (3.5-10.8) 10^3/uL RBC 4.79 (3.70-4.87) 10^6 /uL Hgb 13.7 (12.0-16.0) g/dL Hct 41 (35-47) % MCV 86 (80-97) fL MCH 29 (27-31) pg MCHC 33 (31-36) g/dL RDW 15 (10-15) % Plt Count 257 (150-450) 10^3/uL MPV 9.3 (7.4-10.4) fL Neut % (Auto) 65.8 % Lymph % (Auto) 25.3 % [place] % (Auto) 5.9 % Eos % (Auto) 2.0 % Baso % (Auto) 1.0 % Absolute Neuts (auto) 8.6 H (1.5-7.7) 10^3/ul Absolute Lymphs (auto) 3.3 (1.0-4.8) 10^3/ul Absolute Monos (auto) 0.8 (0-0.8) 10^3/ul Absolute Eos (auto) 0.3 (0-0.6) 10^3/ul Absolute Basos (auto) 0.1 (0-0.2) 10^3/ul Absolute Nucleated RBC 0.0 10^3/ul Nucleated RBC % 0.0 Sodium 140 (135-145) mmol/L Potassium 4.2 (3.5-5.0) mmol/L Chloride 103 (101-111) mmol/L Carbon Dioxide 30 (22-32) mmol/L Anion Gap 7 (2-11) mmol/L BUN 21 (6-24) mg/dL Creatinine 0.48 L (0.51-0.95) mg/dL Est GFR ( Amer) 150.2 (>60) Est GFR (Non-Af Amer) 124.1 (>60) BUN/Creatinine Ratio 43.8 H (8-20) Glucose 140 H (70-100) mg/dL Calcium 9.6 (8.6-10.3) mg/dL Total Bilirubin 0.30 (0.2-1.0) mg/dL AST 19 (13-39) U/L ALT 20 (7-52) U/L Alkaline Phosphatase 84 (34-104) U/L C-Reactive Protein 10.99 H (<8.01) mg/L Total Protein 7.0 (6.4-8.9) g/dL Albumin 4.2 (3.2-5.2) g/dL Globulin 2.8 (2-4) g/dL Albumin/Globulin Ratio 1.5 (1-3) Result Diagrams: 06/07/19 23:59 06/07/19 23:59 Lab Statement: Any lab studies that have been ordered have been reviewed, and results considered in the medical decision making process. Complex Multi-Symp Course/Dx Course Of Treatment: Patient is a 83 y/o F presenting to [facility] with complaints of abdominal pain and constipation. She had been evaluated in [facility] on 05/25/19 for back pain and was found to have a spinal fracture. She was admitted to [facility] and was discharged on 05/28/19. Patient was placed on pain medications. She reports that she has not had a bowel movement in the past six days and notes that she has been having abdominal pain as well. On rectal exam, patient is noted to have somewhat hard stool on rectal wall, but no definite fecal impaction. Bloodwork was obtained. Labs showed WBC 13.1, absolute neuts 8.6, creatinine 0.48, BUN/creatinine ratio 43.8, glucose 140, CRP 10.99. During ED course, patient was given Fleet enema, 1 bottle [place] and golytely 2000 ml PO. Patient was discharged to home. - Diagnoses Provider Diagnoses: Constipation Discharge ED - Sign-Out/Discharge Documenting (check all that apply): Patient Departure - discharge Patient Received Moderate/Deep Sedation with Procedure: No - Discharge Plan Condition: Good Disposition: HOME Patient Education Materials: Constipation (ED) Referrals: Ashley Reyes MD [Primary Care Provider] - 2 Days (if no better) Additional Instructions: Drink as much of the golytely as you can over the next 12 hours. It should get the constipation cleared out. - Billing Disposition and Condition Condition: GOOD Disposition: Home - Attestation Statements Document Initiated by Scribe: Yes Documenting Scribe: GILLIAN SHELDON Provider For Whom Chelly is Documenting (Include Credential): GIACOMO VALADEZ MD Scribe Attestation: GILLIAN Rodriguez, bryaned for GIACOMO VALADEZ MD on 06/08/19 at 0639. Scribe Documentation Reviewed: Yes Provider Attestation: The documentation as recorded by the GILLIAN oleary accurately reflects the service I personally performed and the decisions made by me, GIACOMO VALADEZ MD Status of Scribe Document: Viewed
== END 2019-06-08 00:58 | disposition home or self-care (01) ==
LOC: ED 21:23
DX: K59.00 Constipation, unspecified (principal); Z85.828 Personal history of other malignant neoplasm of skin; K21.9 Gastro-esophageal reflux disease without esophagitis; I10 Essential (primary) hypertension; F32.9 Major depressive disorder, single episode, unspecified; E11.9 Type 2 diabetes mellitus without complications; Z87.442 Personal history of urinary calculi; Z79.899 Other long term (current) drug therapy
CPT/HCPCS: 36415; 80053; 85025; 86140; 99283; A9270-GY

== ENCOUNTER 2021-04-13 23:11 | Inpatient (IN) ==
[2021-04-14] MEDS ORDERED: NS 0.9% 1000 ml BAG 1,000 ML IV ONE (00:13)
[2021-04-14 00:53] LABS: Urine Appearance Cloudy; Urine Bilirubin Negative (Negative); Urine Blood Negative (Negative); Urine Color Yellow; Urine Glucose Negative (Negative); Urine Ketones Negative (Negative); Urine Nitrite Negative (Negative); Urine Protein Negative (Negative); Urine Specific Gravity 1.015 (1.002-1.030); Urine Urobilinogen Negative (Negative)
[2021-04-14 01:08] LABS: ABS Basophils 0.1 10^3/ul (0-0.2); ABS Eosinophils 0.1 10^3/ul (0-0.6); ABS Lymphocytes 3.8 10^3/ul (1.0-4.8); ABS Monocytes 0.8 10^3/ul (0-0.8); ABS Neutrophils 6.9 10^3/ul (1.5-7.7); Eosinophil % 1.1 %; Hematocrit 42 % (35-47); Hemoglobin 13.8 g/dL (12.0-16.0); Lymphocyte % 32.3 %; Mean Corpuscular HGB Conc 33 g/dL (31-36); Mean Corpuscular Hemoglobin 29 pg (27-31); Mean Corpuscular Volume 87 fL (80-97); Platelet Count 236 10^3/uL (150-450); Red Blood Count 4.82 10^6 /uL (3.70-4.87); Red Cell Distribution Width 16 % (10-15); White Blood Count 11.7 10^3/uL (3.5-10.8)
[2021-04-14 01:26] LABS: ALT 17 U/L (7-52); AST 21 U/L (13-39); Albumin 4.2 g/dL (3.2-5.2); Albumin/Globulin Ratio 1.5 (1-3); Alkaline Phosphatase 54 U/L (35-149); Anion Gap 6 mmol/L (2-11); Blood Urea Nitrogen 12 mg/dL (6-24); CO2 Carbon Dioxide 33 mmol/L (22-32); Calcium 10.5 mg/dL (8.6-10.3); Chloride 102 mmol/L (101-111); EGFR African American 111.2 (>60); EGFR Non-African American 91.9 (>60); Globulin 2.8 g/dL (2-4); Glucose 177 mg/dL (70-100); Potassium 3.2 mmol/L (3.5-5.0); Sodium 141 mmol/L (135-145)
[2021-04-14 01:31] LABS: Troponin I 0.07 ng/mL (<0.03)
[2021-04-14 01:40] LABS: TSH Ultra Thyroid Stim Horm 0.84 mcIU/mL (0.34-5.60)
[2021-04-14] MEDS ORDERED: Lactated Ringers 1000 ml BAG 1,000 ML IV ONE (04:13)
[2021-04-14 05:10] LABS: Creatine Kinase 197 U/L (10-223)
[2021-04-14 05:17] LABS: Troponin I 0.03 ng/mL (<0.03)
[2021-04-14] MEDS: Enoxaparin 40 MG/0.4 ML SYR SUBCUT SCH (07:35)
[2021-04-14] MEDS: Nystatin TOP POWDER 15 GM BTL TOPICAL SCH ×2 (16:43→21:25)
[2021-04-14] MEDS ORDERED: HYDROcodone/ACETAMIN 5/325 mg TAB PO PRN (18:54)
[2021-04-14] MEDS ORDERED: ALENDRONATE SODIUM 70 MG PO SCH (19:00)
[2021-04-14] MEDS ORDERED: LIDOCAINE PATCH OFF SCH (19:00)
[2021-04-14] MEDS ORDERED: Lidocaine Patch REMOVE PATCH PATCH OFF SCH (21:00)
[2021-04-14] MEDS: CMCS:Dorzolamide 2% OPTH (NF) 10 ML BTL BOTH EYES SCH (21:13)
[2021-04-14] MEDS: Timolol 0.25% OPHTH.SOLN BTL BOTH EYES SCH (21:20)
[2021-04-14] MEDS: Triamcinolone 0.025% OINT 15 GM TUBE TOPICAL SCH (21:23)
[2021-04-14] MEDS: NF:Multivitamins/Minera Areds(NF) CAP PO SCH (22:02)
[2021-04-14] MEDS: GLUCOSAMINE CHONDROIT VIT C MN PO SCH (22:02)
[2021-04-15] MEDS: Enoxaparin 40 MG/0.4 ML SYR SUBCUT SCH (05:32)
[2021-04-15] MEDS: Lidocaine PATCH 5% PATCH TRANSDERM SCH (08:12)
[2021-04-15] MEDS: CMCS:Pravastatin 20 mg TAB (NF) PO SCH (08:12)
[2021-04-15] MEDS: Nystatin TOP POWDER 15 GM BTL TOPICAL SCH ×2 (08:13→21:27)
[2021-04-15] MEDS: Cholecalciferol (VIT D3) 1,000 unit TAB PO SCH (08:13)
[2021-04-15] MEDS: Timolol 0.25% OPHTH.SOLN BTL BOTH EYES SCH ×2 (08:14→21:41)
[2021-04-15] MEDS: Triamcinolone 0.025% OINT 15 GM TUBE TOPICAL SCH ×2 (08:17→21:41)
[2021-04-15] MEDS: GLUCOSAMINE CHONDROIT VIT C MN PO SCH ×2 (08:18→21:42)
[2021-04-15] MEDS: NF:Multivitamins/Minera Areds(NF) CAP PO SCH ×2 (08:18→21:43)
[2021-04-15] MEDS: CMCS:Dorzolamide 2% OPTH (NF) 10 ML BTL BOTH EYES SCH ×2 (08:50→21:42)
[2021-04-15] MEDS ORDERED: Lidocaine PATCH 5% PATCH TRANSDERM SCH (09:00)
[2021-04-15 09:03] LABS: ABS Basophils 0.1 10^3/ul (0-0.2); ABS Eosinophils 0.4 10^3/ul (0-0.6); ABS Lymphocytes 3.6 10^3/ul (1.0-4.8); ABS Monocytes 0.6 10^3/ul (0-0.8); ABS Neutrophils 5.7 10^3/ul (1.5-7.7); Eosinophil % 3.7 %; Hematocrit 39 % (35-47); Hemoglobin 13.1 g/dL (12.0-16.0); Lymphocyte % 34.7 %; Mean Corpuscular HGB Conc 34 g/dL (31-36); Mean Corpuscular Hemoglobin 29 pg (27-31); Mean Corpuscular Volume 87 fL (80-97); Mean Platelet Volume 9.5 fL (7.4-10.4); Platelet Count 179 10^3/uL (150-450); Red Blood Count 4.48 10^6 /uL (3.70-4.87); Red Cell Distribution Width 16 % (10-15); White Blood Count 10.4 10^3/uL (3.5-10.8)
[2021-04-15 09:20] LABS: Calcium 8.8 mg/dL (8.6-10.3); EGFR African American 145.9 (>60); EGFR Non-African American 120.6 (>60); Potassium 3.3 mmol/L (3.5-5.0)
[2021-04-15] MEDS ORDERED: Potassium Chlor 20 meq TAB.ER PO ONE (09:37)
[2021-04-15 09:56] LABS: Magnesium 1.8 mg/dL (1.9-2.7)
[2021-04-15] MEDS: Lidocaine Patch REMOVE PATCH PATCH OFF SCH (21:39)
[2021-04-16] MEDS: Enoxaparin 40 MG/0.4 ML SYR SUBCUT SCH (05:36)
[2021-04-16 07:00] LABS: Calcium 8.8 mg/dL (8.6-10.3); EGFR African American 130.5 (>60); EGFR Non-African American 107.8 (>60); Potassium 3.7 mmol/L (3.5-5.0)
[2021-04-16] MEDS: CMCS:Dorzolamide 2% OPTH (NF) 10 ML BTL BOTH EYES SCH ×4 (08:15→20:42)
[2021-04-16] MEDS: Cholecalciferol (VIT D3) 1,000 unit TAB PO SCH (08:15)
[2021-04-16] MEDS: NF:Multivitamins/Minera Areds(NF) CAP PO SCH ×2 (08:16→21:06)
[2021-04-16] MEDS: Lidocaine PATCH 5% PATCH TRANSDERM SCH (08:16)
[2021-04-16] MEDS: GLUCOSAMINE CHONDROIT VIT C MN PO SCH ×2 (08:16→20:43)
[2021-04-16] MEDS: CMCS:Pravastatin 20 mg TAB (NF) PO SCH (08:17)
[2021-04-16] MEDS: Timolol 0.25% OPHTH.SOLN BTL BOTH EYES SCH ×4 (08:17→20:42)
[2021-04-16] MEDS: Triamcinolone 0.025% OINT 15 GM TUBE TOPICAL SCH ×4 (08:17→21:06)
[2021-04-16] MEDS: Nystatin TOP POWDER 15 GM BTL TOPICAL SCH ×2 (08:17→20:40)
[2021-04-16] MEDS: Lidocaine Patch REMOVE PATCH PATCH OFF SCH (20:43)
[2021-04-17] MEDS: Enoxaparin 40 MG/0.4 ML SYR SUBCUT SCH (05:20)
[2021-04-17 06:13] LABS: ABS Basophils 0.1 10^3/ul (0-0.2); ABS Eosinophils 0.4 10^3/ul (0-0.6); ABS Lymphocytes 4.5 10^3/ul (1.0-4.8); ABS Monocytes 0.6 10^3/ul (0-0.8); Hematocrit 44 % (35-47); Hemoglobin 14.4 g/dL (12.0-16.0); Lymphocyte % 46.6 %; Mean Corpuscular HGB Conc 33 g/dL (31-36); Mean Corpuscular Hemoglobin 29 pg (27-31); Mean Corpuscular Volume 88 fL (80-97); Platelet Count 201 10^3/uL (150-450); Red Blood Count 4.95 10^6 /uL (3.70-4.87); Red Cell Distribution Width 16 % (10-15); White Blood Count 9.6 10^3/uL (3.5-10.8)
[2021-04-17 06:29] LABS: Calcium 9.1 mg/dL (8.6-10.3); EGFR African American 125.1 (>60); EGFR Non-African American 103.4 (>60); Potassium 3.7 mmol/L (3.5-5.0)
[2021-04-17] MEDS: GLUCOSAMINE CHONDROIT VIT C MN PO SCH (07:06)
[2021-04-17] MEDS: CMCS:Pravastatin 20 mg TAB (NF) PO SCH (08:47)
[2021-04-17] MEDS: Cholecalciferol (VIT D3) 1,000 unit TAB PO SCH (08:48)
[2021-04-17] MEDS: NF:Multivitamins/Minera Areds(NF) CAP PO SCH (08:51)
[2021-04-17] MEDS: Lidocaine PATCH 5% PATCH TRANSDERM SCH (08:51)
[2021-04-17] MEDS: CMCS:Dorzolamide 2% OPTH (NF) 10 ML BTL BOTH EYES SCH (08:52)
[2021-04-17] MEDS: Timolol 0.25% OPHTH.SOLN BTL BOTH EYES SCH (08:52)
[2021-04-17] MEDS: Triamcinolone 0.025% OINT 15 GM TUBE TOPICAL SCH (08:57)
[2021-04-17] MEDS: Nystatin TOP POWDER 15 GM BTL TOPICAL SCH (08:57)
[2021-04-17 11:51] VITALS: BP 129/56
[2021-04-18 03:54] LABS: Anaplasma phagocytophilum Negative (Negative); B. miyamotoi PCR, B Negative (Negative); Babesia divergens/MO-1 Negative (Negative); Babesia ducani Negative (Negative); Ehrlichia chaffeensis Negative (Negative); Ehrlichia ewingii/canis Negative (Negative); Ehrlichia muris eauclairensis Negative (Negative)
== END 2021-04-17 15:50 | disposition home or self-care (01) | DRG 641 ==
LOC: ED 23:11 → MED 23:11
PROVIDERS: ADMIT Internal Medicine; ATTEND Internal Medicine

== ENCOUNTER 2023-04-25 13:53 | Inpatient (IN) ==
[2023-04-25] MEDS ORDERED: Iodixanol (CONTRAST) 320 MG/ML 100 ML SDV IV ONE (14:20)
[2023-04-25 15:23] LABS: ABS Basophils 0.1 10^3/uL (0.0-0.1); ABS Eosinophils 0.5 10^3/uL (0.0-0.5); ABS Lymphocytes 4.4 10^3/uL (1.0-4.8); ABS Monocytes 0.9 10^3/uL (0.0-0.9); ABS Neutrophils 6.1 10^3/uL (1.5-7.6); Eosinophil % 3.9 %; Hematocrit 37.3 % (35-45); Hemoglobin 12.4 g/dL (11.5-14.3); Mean Corpuscular Hemoglobin 28.7 pg (27-33); Mean Corpuscular Hgb Conc 33.2 g/dL (31-36); Mean Corpuscular Volume 86.5 fL (80-97); Mean Platelet Volume 9.1 fL (7.5-11.2); Platelet Count 182 10^3/uL (150-450); Red Blood Count 4.32 10^6/uL (3.63-4.92); Red Cell Distribution Width 15.6 % (12-17); Venous Bicarbonate HCO3 29.7 mmol/L (24-28)
[2023-04-25 15:38] LABS: INR 1.4 (0.88-1.18)
[2023-04-25 15:46] LABS: High Sens Troponin Baseline < 3 pg/mL (<15)
[2023-04-25 15:54] LABS: ALT 13 U/L (7-52); AST 14 U/L (13-39); Albumin/Globulin Ratio 1.5 (1-3); Alkaline Phosphatase 57 U/L (35-149); Anion Gap 6 mmol/L (2-16); Blood Urea Nitrogen 21 mg/dL (6-24); CO2 Carbon Dioxide 32 mmol/L (22-32); Calcium 9.1 mg/dL (8.6-10.3); Chloride 104 mmol/L (101-111); Creatinine, Serum 0.54 mg/dL (0.51-0.95); Globulin 2.7 g/dL (2-4); Glucose 150 mg/dL (70-100); Potassium 3.5 mmol/L (3.5-5.0); Sodium 142 mmol/L (135-145); Total Protein 6.7 g/dL (6.4-8.9); eGFR CKD-EPI 90.2 (>60)
[2023-04-25 16:16] LABS: TSH Ultra Thyroid Stim Horm 2.62 mcIU/mL (0.34-5.60)
[2023-04-25 16:19] LABS: Free T4 0.78 ng/dL (0.61-1.12)
[2023-04-25 16:28] LABS: High Sensitivity Troponin 1 Hr < 3 pg/mL (<15)
[2023-04-25] MEDS ORDERED: Furosemide 20 mg/2 ml IV VIAL IV ONE (21:14)
[2023-04-25] MEDS: Heparin 5000 UNITS/ML 1 mL VIAL SUBCUT SCH (22:22)
[2023-04-26] MEDS: Lidocaine PATCH 4% TOPICAL SCH ×3 (00:35→14:25)
[2023-04-26] MEDS ORDERED: Furosemide 20 mg/2 ml IV VIAL IV ONE (05:19)
[2023-04-26 06:15] LABS: ABS Basophils 0.1 10^3/uL (0.0-0.1); ABS Eosinophils 0.4 10^3/uL (0.0-0.5); ABS Lymphocytes 3.6 10^3/uL (1.0-4.8); ABS Monocytes 0.6 10^3/uL (0.0-0.9); ABS Neutrophils 8.2 10^3/uL (1.5-7.6); ABS Nucleated RBC 0.01 10^3/ul; Eosinophil % 3.1 %; Hematocrit 38.6 % (35-45); Lymphocyte % 28.1 %; Mean Corpuscular Hemoglobin 28.6 pg (27-33); Mean Corpuscular Hgb Conc 33.6 g/dL (31-36); Mean Corpuscular Volume 85.1 fL (80-97); Mean Platelet Volume 9.4 fL (7.5-11.2); Nucleated Red Blood Cells % 0.1 /100 WBC (0.0-0.4); Platelet Count 178 10^3/uL (150-450); Red Blood Count 4.53 10^6/uL (3.63-4.92); Red Cell Distribution Width 15.3 % (12-17)
[2023-04-26 06:33] LABS: Calcium 8.8 mg/dL (8.6-10.3); Creatinine, Serum 0.48 mg/dL (0.51-0.95); Magnesium 1.7 mg/dL (1.9-2.7); Potassium 3.2 mmol/L (3.5-5.0); eGFR CKD-EPI 92.8 (>60)
[2023-04-26 06:40] LABS: Urine Appearance Clear; Urine Bilirubin Negative (Negative); Urine Blood Negative (Negative); Urine Color Straw; Urine Glucose Negative (Negative); Urine Ketones Negative (Negative); Urine Nitrite Negative (Negative); Urine Protein Negative (Negative); Urine Specific Gravity 1.011 (1.002-1.030); Urine Urobilinogen Negative (Negative)
[2023-04-26 06:41] LABS: Urine Bacteria Absent (Absent); Urine Red Blood Cell Absent (Absent); Urine Squamous Epithelial Cell Present (Absent); Urine White Blood Cell 2+(11-20/hpf) (Absent)
[2023-04-26] MEDS ORDERED: Magnesium Sulfate 2 gm BAG 2 GM/50 ML BAG IVPB ONE (06:50)
[2023-04-26] MEDS ORDERED: Potassium Chlor 20 meq TAB.ER PO ONE (06:51)
[2023-04-26] MEDS ORDERED: Magnesium Sulfate IV 3 GM in NS 0.9% 100 ml BAG 100 ML IVPB ONE (06:52)
[2023-04-26] MEDS ORDERED: Magnesium Sulfate 2 gm BAG 2 GM/50 ML BAG IV ONE (07:30)
[2023-04-26] MEDS ORDERED: Sulfur Hexaflouride MICROSPHR 25 MG VIAL ONE (08:27)
[2023-04-26] MEDS ORDERED: Magnesium Sulfate IV 1GM/100ML 1 GM/100 ML BAG IV ONE (08:30)
[2023-04-26] MEDS: Polyethylene Glycol 3350 17 GM PACKET PO SCH (09:27)
[2023-04-26] MEDS: Cholecalciferol (VIT D3) 1,000 unit TAB PO SCH (09:29)
[2023-04-26] MEDS: Heparin 5000 UNITS/ML 1 mL VIAL SUBCUT SCH (09:35)
[2023-04-26] MEDS ORDERED: Lidocaine PATCH 5% PATCH TRANSDERM SCH (12:00)
[2023-04-26] MEDS ORDERED: Potassium Chloride LIQUID 20 MEQ/15 ML LIQUID PO ONE (18:00)
[2023-04-26 19:46] LABS: Urine Benzodiazepine Screen None Detected (None Detect); Urine Buprenorphine Screen None Detected (None Detect); Urine Cannabinoids Screen None Detected (None Detect); Urine Fentanyl Screen None Detected (None Detect); Urine Hydrocodone Screen Presumptive Positive (None Detect); Urine Opiates Screen Presumptive Positive (None Detect)
[2023-04-26] MEDS ORDERED: Enoxaparin 40 MG/0.4 ML SYR SUBCUT SCH (21:00)
[2023-04-27] MEDS ORDERED: HYDROcodone/ACETAMIN 5/325 mg TAB PO PRN (00:52)
[2023-04-27 07:22] LABS: ABS Basophils 0.1 10^3/uL (0.0-0.1); ABS Eosinophils 0.2 10^3/uL (0.0-0.5); ABS Lymphocytes 3.1 10^3/uL (1.0-4.8); ABS Monocytes 0.6 10^3/uL (0.0-0.9); ABS Neutrophils 6.5 10^3/uL (1.5-7.6); Eosinophil % 1.9 %; Hematocrit 38.7 % (35-45); Lymphocyte % 29.7 %; Mean Corpuscular Hemoglobin 28.8 pg (27-33); Mean Corpuscular Hgb Conc 33.6 g/dL (31-36); Mean Corpuscular Volume 85.9 fL (80-97); Mean Platelet Volume 9.9 fL (7.5-11.2); Platelet Count 175 10^3/uL (150-450); Red Cell Distribution Width 15.4 % (12-17); White Blood Count 10.5 10^3/uL (3.8-11.8)
[2023-04-27 07:26] LABS: INR 1.17 (0.88-1.18)
[2023-04-27 07:39] LABS: Albumin 3.8 g/dL (3.2-5.2); Albumin/Globulin Ratio 1.5 (1-3); C Reactive Protein 12.7 mg/L (<8.01); Calcium 8.8 mg/dL (8.6-10.3); Creatinine, Serum 0.43 mg/dL (0.51-0.95); Globulin 2.6 g/dL (2-4); Magnesium 2.2 mg/dL (1.9-2.7); Total Bilirubin 0.5 mg/dL (0.2-1.0); Total Protein 6.4 g/dL (6.4-8.9); eGFR CKD-EPI 95.3 (>60)
[2023-04-27] MEDS: Cholecalciferol (VIT D3) 1,000 unit TAB PO SCH (09:09)
[2023-04-27] MEDS: Lidocaine PATCH 4% TOPICAL SCH (09:10)
[2023-04-27] MEDS: Polyethylene Glycol 3350 17 GM PACKET PO SCH (09:14)
[2023-04-27 15:54] VITALS: BP 140/86
== END 2023-04-27 15:43 | disposition home or self-care (01) | DRG 72 ==
LOC: ED 13:53 → SUATTDRO 19:07 → EDHOLD 19:07 → MEDTELE 22:46
PROVIDERS: ADMIT Internal Medicine; ATTEND Internal Medicine

== ENCOUNTER 2024-05-19 16:46 | Inpatient (IN) ==
[2024-05-19 18:12] LABS: ABS Basophils 0.1 10^3/uL (0.0-0.1); ABS Lymphocytes 1.6 10^3/uL (1.0-4.8); ABS Monocytes 1.3 10^3/uL (0.0-0.9); ABS Neutrophils 18.1 10^3/uL (1.5-7.6); ABS Nucleated RBC 0.01 10^3/ul; Eosinophil % 0.1 %; Hematocrit 40.5 % (35-45); Hemoglobin 13.6 g/dL (11.5-14.3); Lymphocyte % 7.8 %; Mean Corpuscular Hgb Conc 33.6 g/dL (31-36); Mean Corpuscular Volume 86.3 fL (80-97); Mean Platelet Volume 10.7 fL (7.5-11.2); Platelet Count 148 10^3/uL (150-450); White Blood Count 21.2 10^3/uL (3.8-11.8)
[2024-05-19 18:36] LABS: INR 1.2 (0.85-1.14)
[2024-05-19 19:00] LABS: ALT 47 U/L (7-52); AST 135 U/L (13-39); Albumin 4.3 g/dL (3.2-5.2); Albumin/Globulin Ratio 1.6 (1-3); Alkaline Phosphatase 67 U/L (35-149); Anion Gap 10 mmol/L (2-16); Blood Urea Nitrogen 23 mg/dL (6-24); C Reactive Protein 170.03 mg/L (<8.01); CO2 Carbon Dioxide 29 mmol/L (22-32); Calcium 9.9 mg/dL (8.6-10.3); Chloride 96 mmol/L (101-111); Creatinine, Serum 0.85 mg/dL (0.51-0.95); Globulin 2.7 g/dL (2-4); Glucose 293 mg/dL (70-100); Potassium 4.1 mmol/L (3.5-5.0); Sodium 135 mmol/L (135-145); Total Bilirubin 0.9 mg/dL (0.2-1.0); eGFR CKD-EPI 66.7 (>60)
[2024-05-19 19:58] LABS: Lipase < 10 U/L (11.0-82.0)
[2024-05-19 20:05] LABS: High Sensitivity Troponin 1 Hr 15 pg/mL (<15)
[2024-05-19] MEDS: Lactated Ringers SEPSIS* BAG 2,310 ML IV ONE (20:17)
[2024-05-19 20:53] LABS: Urine Appearance Extra Turbid; Urine Bilirubin Negative (Negative); Urine Blood 3+ (Negative); Urine Color Yellow; Urine Glucose Negative (Negative); Urine Ketones Negative (Negative); Urine Nitrite Negative (Negative); Urine Protein 2+ (>=100 mg/dL) (Negative); Urine Specific Gravity 1.011 (1.002-1.030); Urine Urobilinogen Negative (Negative)
[2024-05-19 20:58] LABS: Urine Bacteria 3+ /HPF (Absent); Urine Red Blood Cell 3+(>10/hpf) /HPF (0-Trace); Urine Squamous Epithelial Cell Present /HPF (Absent); Urine White Blood Cell 3+(>20/hpf) /HPF (0-Trace)
[2024-05-19] MEDS: cefTRIAXone 1 gm/50 mL D5W 1 GM/50 ML BAG IV ONE ×2 (21:03→23:22)
[2024-05-20] MEDS: Furosemide 40 mg/4 ml IV VIAL IV SLOW PU ONE (00:51)
[2024-05-20] MEDS: Acetaminophen IV 1 GM/100ML 1,000 MG/100 ML BAG IV ONE (01:11)
[2024-05-20 02:34] LABS: Venous Bicarbonate HCO3 27.4 mmol/L (24-28)
[2024-05-20] MEDS ORDERED: Ondansetron 4 mg VIAL 2 MG/ML 2 ml VIAL IV PRN (03:22)
[2024-05-20] MEDS: Iodixanol (CONTRAST) 320 MG/ML 100 ML SDV IV ONE (04:07)
[2024-05-20] MEDS ORDERED: Dextrose 50% Syringe 50 ml 25 GM/50 ML SYRINGE IV PUSH PRN (05:34)
[2024-05-20 06:36] LABS: Hematocrit 37.6 % (35-45); Hemoglobin 12.5 g/dL (11.5-14.3); Mean Corpuscular Hgb Conc 33.1 g/dL (31-36); Mean Corpuscular Volume 87.4 fL (80-97); Mean Platelet Volume 10.4 fL (7.5-11.2); Platelet Count 125 10^3/uL (150-450); Red Cell Distribution Width 14.1 % (12-17)
[2024-05-20 08:05] LABS: Anion Gap 10 mmol/L (2-16); Blood Urea Nitrogen 19 mg/dL (6-24); CO2 Carbon Dioxide 26 mmol/L (22-32); Calcium 7.8 mg/dL (8.6-10.3); Chloride 103 mmol/L (101-111); Creatine Kinase 15196 U/L (10-223); Creatinine, Serum 0.66 mg/dL (0.51-0.95); Glucose 184 mg/dL (70-100); Magnesium 1.8 mg/dL (1.9-2.7); Sodium 139 mmol/L (135-145); eGFR CKD-EPI 85.4 (>60)
[2024-05-20 08:25] LABS: ABS Basophils 0.1 10^3/uL (0.0-0.1); ABS Lymphocytes 2.4 10^3/uL (1.0-4.8); ABS Monocytes 1.6 10^3/uL (0.0-0.9); ABS Nucleated RBC 0.01 10^3/ul; Eosinophil % 0.1 %; Lymphocyte % 11.6 %
[2024-05-20] MEDS: Acetaminophen IV 1 GM/100ML 1,000 MG/100 ML BAG IV PRN (14:37)
[2024-05-20] MEDS: Furosemide 20 mg/2 ml IV VIAL IV ONE (15:15)
[2024-05-20] MEDS: Enoxaparin 40 MG/0.4 ML SYR SUBCUT SCH (17:34)
[2024-05-20] MEDS ORDERED: cefTRIAXone 1 gm/50 mL D5W 1 GM/50 ML BAG IV SCH (20:00)
[2024-05-20] MEDS: cefTRIAXone 2 gm/50 mL D5W 2 GM/50 ML BAG IV SCH (22:31)
[2024-05-20] MEDS: CMCS: Pravastatin 20 mg TAB (NF) PO SCH (22:34)
[2024-05-20] MEDS: Magnesium Sulfate 2 gm BAG 2 GM/50 ML BAG IVPB ONE (23:23)
[2024-05-21 07:14] LABS: ABS Basophils 0.1 10^3/uL (0.0-0.1); ABS Lymphocytes 2.6 10^3/uL (1.0-4.8); ABS Neutrophils 12.3 10^3/uL (1.5-7.6); ABS Nucleated RBC 0.01 10^3/ul; Eosinophil % 0.1 %; Hematocrit 40.8 % (35-45); Hemoglobin 13.2 g/dL (11.5-14.3); Lymphocyte % 16.2 %; Mean Corpuscular Hemoglobin 28.8 pg (27-33); Mean Corpuscular Hgb Conc 32.4 g/dL (31-36); Mean Corpuscular Volume 88.9 fL (80-97); Mean Platelet Volume 10.8 fL (7.5-11.2); Nucleated Red Blood Cells % 0.1 %/100WBC (0.0-0.8); Platelet Count 103 10^3/uL (150-450); Red Blood Count 4.59 10^6/uL (3.63-4.92); Red Cell Distribution Width 14.6 % (12-17)
[2024-05-21 07:40] LABS: Anion Gap 15 mmol/L (2-16); Blood Urea Nitrogen 29 mg/dL (6-24); CO2 Carbon Dioxide 26 mmol/L (22-32); Calcium 8.6 mg/dL (8.6-10.3); Chloride 100 mmol/L (101-111); Creatinine, Serum 0.86 mg/dL (0.51-0.95); Glucose 184 mg/dL (70-100); Sodium 141 mmol/L (135-145); eGFR CKD-EPI 65.8 (>60)
[2024-05-21 07:54] LABS: Creatine Kinase 5818 U/L (10-223)
[2024-05-21] MEDS: Potassium Chloride LIQUID 20 MEQ/15 ML LIQUID PO SCH (11:09)
[2024-05-21] MEDS: Lidocaine PATCH 5% PATCH TRANSDERM SCH (17:01)
[2024-05-21] MEDS: CMCS:Dorzolamide/Timolol OPTH (NF) 10 ML BOT BOTH EYES SCH (22:48)
[2024-05-22] MEDS: Morphine 2 MG/ML SYRINGE IV ONE (00:23)
[2024-05-23 06:13] LABS: Hematocrit 35.1 % (35-45); Hemoglobin 11.7 g/dL (11.5-14.3); Mean Corpuscular Hemoglobin 29.1 pg (27-33); Mean Corpuscular Hgb Conc 33.2 g/dL (31-36); Mean Corpuscular Volume 87.6 fL (80-97); Platelet Count 137 10^3/uL (150-450); Red Blood Count 4.01 10^6/uL (3.63-4.92); Red Cell Distribution Width 14.2 % (12-17); White Blood Count 11.9 10^3/uL (3.8-11.8)
[2024-05-23 06:58] LABS: Calcium 8.6 mg/dL (8.6-10.3); Creatinine, Serum 0.53 mg/dL (0.51-0.95); Potassium 4.2 mmol/L (3.5-5.0)
[2024-05-24 05:56] LABS: ABS Basophils 0.2 10^3/uL (0.0-0.1); ABS Eosinophils 0.3 10^3/uL (0.0-0.5); ABS Lymphocytes 3.1 10^3/uL (1.0-4.8); ABS Monocytes 0.9 10^3/uL (0.0-0.9); ABS Neutrophils 7.7 10^3/uL (1.5-7.6); Eosinophil % 2.4 %; Hematocrit 38.6 % (35-45); Hemoglobin 12.4 g/dL (11.5-14.3); Lymphocyte % 25.6 %; Mean Corpuscular Hemoglobin 28.1 pg (27-33); Mean Corpuscular Hgb Conc 32.1 g/dL (31-36); Mean Corpuscular Volume 87.5 fL (80-97); Platelet Count 157 10^3/uL (150-450); Red Blood Count 4.41 10^6/uL (3.63-4.92); Red Cell Distribution Width 13.8 % (12-17); White Blood Count 12.2 10^3/uL (3.8-11.8)
[2024-05-24 06:27] LABS: Calcium 8.8 mg/dL (8.6-10.3); Creatinine, Serum 0.47 mg/dL (0.51-0.95); Magnesium 1.8 mg/dL (1.9-2.7); eGFR CKD-EPI 92.7 (>60)
[2024-05-25 10:31] LABS: Creatinine, Serum 0.45 mg/dL (0.51-0.95); Magnesium 1.8 mg/dL (1.9-2.7); Potassium 4.3 mmol/L (3.5-5.0); eGFR CKD-EPI 93.6 (>60)
[2024-05-25 12:31] LABS: Hematocrit 39.4 % (35-45); Hemoglobin 12.8 g/dL (11.5-14.3); Mean Corpuscular Hemoglobin 28.2 pg (27-33); Mean Corpuscular Hgb Conc 32.4 g/dL (31-36); Mean Corpuscular Volume 86.9 fL (80-97); Mean Platelet Volume 10.9 fL (7.5-11.2); Platelet Count 206 10^3/uL (150-450); Red Blood Count 4.54 10^6/uL (3.63-4.92)
[2024-05-25 13:00] LABS: ABS Basophils 0.1 10^3/uL (0.0-0.1); ABS Eosinophils 0.3 10^3/uL (0.0-0.5); ABS Lymphocytes 3.7 10^3/uL (1.0-4.8); ABS Neutrophils 9.9 10^3/uL (1.5-7.6); ABS Nucleated RBC 0.02 10^3/ul; Eosinophil % 2.2 %; Lymphocyte % 24.5 %; Nucleated Red Blood Cells % 0.1 %/100WBC (0.0-0.8)
[2024-05-25] MEDS: Magnesium Sulfate 2 gm BAG 2 GM/50 ML BAG IVPB ONE (14:38)
[2024-05-25 16:07] LABS: Urine Appearance No Cx Turbid (Clear); Urine Bilirubin No Culture Negative (Negative); Urine Blood No Culture 3+ (Negative); Urine Glucose No Culture Negative (Negative); Urine Ketones No Culture Negative (Negative); Urine Leukocytes No Culture 75 (1+) Leu/uL (Negative); Urine Nitrite No Culture Negative (Negative); Urine Protein No Culture 2+ (>=100 mg/dL) (Negative); Urine Specific Gravity No Cx 1.017 (1.002-1.030); Urine Urobilinogen No Cx Negative (Negative); Urine pH No Culture 7.5 (5.0-8.0)
[2024-05-25 16:27] LABS: Ur Squamous Epithelial No Cx Present /HPF (Absent); Urine Bacteria No Culture Absent /HPF (Absent); Urine Red Blood Cell No Cult 3+(>10/hpf) /HPF (0-Trace); Urine White Blood Cell No Cult 2+(11-20/hpf) /HPF (0-Trace)
[2024-05-25 17:46] LABS: Urine Color No Culture Yellow
[2024-05-26 06:21] LABS: ABS Basophils 0.1 10^3/uL (0.0-0.1); ABS Eosinophils 0.4 10^3/uL (0.0-0.5); ABS Lymphocytes 4.5 10^3/uL (1.0-4.8); ABS Monocytes 1.1 10^3/uL (0.0-0.9); ABS Neutrophils 9.9 10^3/uL (1.5-7.6); ABS Nucleated RBC 0.01 10^3/ul; Eosinophil % 2.7 %; Hemoglobin 12.9 g/dL (11.5-14.3); Lymphocyte % 28.2 %; Mean Corpuscular Hemoglobin 28.8 pg (27-33); Mean Corpuscular Volume 87.3 fL (80-97); Mean Platelet Volume 9.2 fL (7.5-11.2); Platelet Count 214 10^3/uL (150-450); Red Blood Count 4.47 10^6/uL (3.63-4.92); Red Cell Distribution Width 14.1 % (12-17)
[2024-05-26 06:24] LABS: Calcium 9.5 mg/dL (8.6-10.3); Creatinine, Serum 0.52 mg/dL (0.51-0.95); Magnesium 2.1 mg/dL (1.9-2.7); Potassium 4.1 mmol/L (3.5-5.0); eGFR CKD-EPI 90.4 (>60)
[2024-05-26 13:56] VITALS: BP 139/66
== END 2024-05-26 14:40 | DRG 853 ==
LOC: ED 16:46 → EDHOLD 16:46 → SUATTDRO 05-20 03:16 → EDHOLD 05-20 06:53 → AA 05-20 08:10 → SUATTDRO 05-20 09:13
PROVIDERS: ADMIT Internal Medicine; ATTEND Internal Medicine

== ENCOUNTER 2024-10-13 14:45 | Observation (INO) ==
[2024-10-13 15:44] LABS: ABS Basophils 0.1 10^3/uL (0.0-0.1); ABS Eosinophils 0.3 10^3/uL (0.0-0.5); ABS Lymphocytes 3.7 10^3/uL (1.0-4.8); ABS Monocytes 0.7 10^3/uL (0.0-0.9); Eosinophil % 2.3 %; Hematocrit 40.8 % (35-45); Hemoglobin 13.4 g/dL (11.5-14.3); Lymphocyte % 31.4 %; Mean Corpuscular Hemoglobin 28.8 pg (27-33); Mean Corpuscular Hgb Conc 32.9 g/dL (31-36); Mean Corpuscular Volume 87.4 fL (80-97); Platelet Count 164 10^3/uL (150-450); Red Blood Count 4.66 10^6/uL (3.63-4.92); Red Cell Distribution Width 15.8 % (12-17); White Blood Count 11.8 10^3/uL (3.8-11.8)
[2024-10-13 15:49] LABS: INR 0.99 (0.85-1.14)
[2024-10-13 16:08] LABS: High Sens Troponin Baseline < 3 pg/mL (<15)
[2024-10-13 16:10] LABS: ALT 15 U/L (7-52); AST 17 U/L (13-39); Albumin 4.3 g/dL (3.5-5.7); Albumin/Globulin Ratio 1.6 (1-3); Alkaline Phosphatase 54 U/L (35-149); Anion Gap 5 mmol/L (2-16); Blood Urea Nitrogen 17 mg/dL (6-24); CO2 Carbon Dioxide 32 mmol/L (22-32); Calcium 9.2 mg/dL (8.6-10.3); Chloride 102 mmol/L (101-111); Creatinine, Serum 0.65 mg/dL (0.51-0.95); Globulin 2.7 g/dL (2-4); Glucose 182 mg/dL (70-100); Potassium 3.6 mmol/L (3.5-5.0); Sodium 139 mmol/L (135-145); Total Bilirubin 0.3 mg/dL (0.2-1.0); eGFR CKD-EPI 85.2 (>60)
[2024-10-13 17:08] LABS: Urine Appearance Clear; Urine Bilirubin Negative (Negative); Urine Blood Negative (Negative); Urine Color Light-Yellow; Urine Glucose Negative (Negative); Urine Ketones Negative (Negative); Urine Nitrite Negative (Negative); Urine Protein Negative (Negative); Urine Specific Gravity 1.012 (1.002-1.030); Urine Urobilinogen Negative (Negative); Urine pH 6.5 (5.0-8.0)
[2024-10-13 17:27] LABS: Urine Bacteria 1+ /HPF (Absent); Urine Red Blood Cell 1+(3-5/hpf) /HPF (0-Trace); Urine Squamous Epithelial Cell Present /HPF (Absent); Urine White Blood Cell 3+(>20/hpf) /HPF (0-Trace)
[2024-10-13 17:51] LABS: High Sensitivity Troponin 1 Hr < 3 pg/mL (<15)
[2024-10-13] MEDS: cefTRIAXone 2 gm/50 mL D5W 2 GM/50 ML BAG IV ONE (20:26)
[2024-10-13 23:43] LABS: TSH Ultra Thyroid Stim Horm 1.59 mcIU/mL (0.34-5.60)
[2024-10-13 23:55] LABS: Folate > 20.00 ng/mL (5.90-24.80); Vitamin B12 379 pg/mL (180-914)
[2024-10-14] MEDS ORDERED: Dextrose 50% Syringe 50 ml 25 GM/50 ML SYRINGE IV PUSH PRN (02:15)
[2024-10-14] MEDS: Aspirin EC 81 mg TAB.EC (enteric coated) PO SCH (08:54)
[2024-10-14] MEDS: Calcium/Vitamin D TAB 250/125 TAB PO SCH (08:54)
[2024-10-14] MEDS: Polyethylene Glycol 3350 17 GM PACKET PO SCH (08:55)
[2024-10-14] MEDS: Fluticasone NASAL SPRAY 50MCG 16 gm SPRAY BTL INTRANASAL SCH (08:55)
[2024-10-14] MEDS: CMCS: Dorzolamide/Timolol OPTH (NF) 10 ML BOT BOTH EYES SCH (11:32)
[2024-10-14] MEDS: Cholecalciferol (VIT D3) 1,000 unit TAB PO SCH (11:32)
[2024-10-14] MEDS: Enoxaparin 40 MG/0.4 ML SYR SUBCUT SCH (17:27)
[2024-10-14] MEDS ORDERED: cefTRIAXone 1 gm/50 mL D5W 1 GM/50 ML BAG IV SCH (21:00)
[2024-10-14] MEDS: cefTRIAXone 1 gm/50 mL D5W 1 GM/50 ML BAG IV SCH (21:00)
[2024-10-14 22:11] LABS: Urine Appearance Clear; Urine Bilirubin Negative (Negative); Urine Blood Negative (Negative); Urine Color Colorless; Urine Glucose Negative (Negative); Urine Ketones Negative (Negative); Urine Nitrite Negative (Negative); Urine Protein Negative (Negative); Urine Specific Gravity 1.007 (1.002-1.030); Urine Urobilinogen Negative (Negative)
[2024-10-14 22:21] LABS: Urine Bacteria Absent /HPF (Absent); Urine Red Blood Cell Trace(0-2/hpf) /HPF (0-Trace); Urine Squamous Epithelial Cell Present /HPF (Absent); Urine White Blood Cell 2+(11-20/hpf) /HPF (0-Trace)
[2024-10-15 09:51] VITALS: BP 116/47
== END 2024-10-15 14:16 | disposition home or self-care (01) ==
LOC: ED 14:45 → EDHOLD 14:45 → SUATTDRO 21:42 → MEDTELE 10-14 00:20
PROVIDERS: ADMIT Student in an Organized Health Care Education/Training Program; ATTEND Internal Medicine